=== PATIENT | male | born 1955 | race Caucasian/White ===

== ENCOUNTER 2019-02-09 08:40 | Inpatient (IN) | payer OTHER ==
[~2019-02-09] VITALS: Ht 188 cm; Wt 97.5 kg
[~2019-02-09 08:40] MED LIST: AZIT500 PO; LISI5 PO; Lisinopril2.5 MG; METF500 PO; METPRE4DP PO; Omeprazole20 M1; PROAIR RESPICL90 MCG INH; VITAMIN D31 ML PO
[2019-02-09 09:05] LABS: BASOPHILS ABSOLUTE AUTO 0.03 K/mm3 (0.00-0.23); BASOPHILS PERCENT AUTO 0 % (0-2); EOSINOPHILS ABSOLUTE AUTO 0.16 K/mm3 (0.00-0.68); EOSINOPHILS PERCENT AUTO 2 % (0-6); Hematocrit 45.2 % (37.0-53.0); Hemoglobin 14.4 g/dL (13.5-17.5); IMMATURE GRAN ABSOLUTE AUTO 0.03 K/mm3 (0.00-0.10); IMMATURE GRAN PERCENT AUTO 0 % (0-1); LYMPHOCYTES ABSOLUTE AUTO 2.94 K/mm3 (0.84-5.20); LYMPHOCYTES PERCENT AUTO 31 % (21-46); MONOCYTES ABSOLUTE AUTO 0.77 K/mm3 (0.16-1.47); MONOCYTES PERCENT AUTO 8 % (4-13); Mean Corpuscular HGB 29.9 pg (26.0-34.0); Mean Corpuscular HGB Conc 31.9 g/dL (31.5-36.5); Mean Corpuscular Volume 94 fL (80-100); Mean Platelet Volume 9.8 fL (9.1-12.4); NEUTROPHILS PERCENT AUTO 59 % (41-73); Platelet Count 287 K/mm3 (150-400); RDW Coefficient Variation 13.5 % (11.7-14.2); RDW Standard Deviation 46.4 fL (35.1-46.3); Red Blood Cell Count 4.82 M/mm3 (4.30-5.90); White Blood Cell Count 9.63 K/mm3 (4.00-11.30)
[2019-02-09 09:23] LABS: Alanine Aminotransfer (ALT/SGP 18 U/L (12-78); Albumin, Blood 3.4 g/dL (3.4-5.0); Albumin/Globulin Ratio 0.9 (0.8-1.8); Alk Phos 56 U/L (50-136); Anion Gap 5 mmol/L (6-16); Aspartate Aminotrans (AST/SGOT 26 U/L (12-37); Bilirubin, Total 0.2 mg/dL (0.1-1.0); Blood Urea Nitrogen 18 mg/dL (8-24); Bun/Creatinine Ratio 17.5 (12.0-20.0); CO2, Blood 25 mmol/L (21-32); Calcium, Blood 8.9 mg/dL (8.5-10.1); Chloride, Blood 108 mmol/L (98-108); Creatinine, Blood 1.03 mg/dL (0.60-1.20); Globulin, Blood 3.8 g/dL (2.2-4.0); Glomerular Filtration Rate >60 (60-); Glucose, Blood 172 mg/dL (70-99); Potassium, Blood 3.9 mmol/L (3.5-5.5); Sodium, Blood 138 mmol/L (136-145); Total Protein, Blood 7.2 g/dL (6.4-8.2)
[2019-02-09 11:00] LABS: International Normalized Ratio 1.01; Prothrombin Time Results 10.7 Sec (9.7-11.5)
--- NOTE | 2019-02-09 12:00 | NUR ---
PT ADMITTED TO ICU FROM ER FOR NSTEMI. PT ARRIVES ON GURNEY. ABLE TO STAND AND TRANSFER TO ICU BED W/O DIFFICULTY. PT DENIES CHEST PAIN, SOB, OR NAUSEA. C/O LEFT CHEST PRESSURE /10. STATES HE "CAN BARELY FEEL IT". PT DECRIBES PAIN THAT HAD BROUGHT HIM IN PRESSURE SO INTENSE THAT IT "WAS SQUEEZING HIS HEART". VSS. LUNGS WITH SOME SLIGHT SCATTERED COARSENESS; PT STATES HE IS A SMOKER. PT ARRIVES ON HEPARIN GTT AT 13UNITS. DR MCKEE HAD SEEN PT IN ER. SPOKE W DR MCKEE TO CLARIFY ORDERS; PT CAN EAT, HOLD PLAVIX LOADING DOSE; PT TO HAVE ANGIOGRAM ON MONDAY. PT UNSURE OF HOME MEDS; CALLED PER PT'S REQUEST TO ASK ABOUT MED LIST.
[2019-02-09] MEDS ORDERED: BASAGLAR K100 UNIT/1 SC (14:39)
[2019-02-09] MEDS ORDERED: ASPI81CH PO (14:39)
[2019-02-09] MEDS ORDERED: ATOR40TA PO (14:40)
--- NOTE | 2019-02-09 15:00 | NUR ---
SAFETY CONCERN PT STS HAS CONCERN FOR SAFTEY AT HOME REGARDING TWO SONS THAT ARE LIVING WITH HIM. STS ONE SON HAS MENTAL HEALTH ISSUES/DIAGNOSES AND THE OTHER HAS NO KNOWN DIAGNOSES BUT DOES HAVE BEHAVIORAL ISSUES. PT STS HE SOMETIMES FEELS THAT HE "NEEDS TO SLEEP WITH A GUN UNDER MY PILLOW."
--- NOTE | 2019-02-09 15:54 | NUR ---
CALL PLACED TO DR MCKEE REGARDING CRITICAL TROPONIN LEVEL. DR MCKEE ORDERED NEXT TROPONIN (SCHEDULED FOR 2099) TO BE CANCELED.
--- NOTE | 2019-02-09 17:53 | NUR ---
SHIFT SUMMARY PT REMAINS ALERT AND ORIENTED. PT STS CHEST PRESSURE REMAINS THE SAME AT A 1, BP STABLE WITH MAPS 70'S-80'S. MONITOR SHOWS NSR WITH BBB AND INVERTED T WAVE. 02 SATS REMAIN ABOVE 90% ON RA. PT DENIES SOB. RFA IV INFUSING HEPARIN GTT. IMPROVED PO INTAKE WITH MECHANICAL SOFT DIET.
--- NOTE | 2019-02-09 19:36 | NUR ---
ASSUMED CARE OF PT, HE IS RESTING QUIETLY RECLINING IN BED AND WATCHING TV AT THIS TIME, HE DENIES PAIN AND RATES HIS ONGOING CHEST PRESSURE BETTER AND PROVIDES 1/10 FOR SCALE. HE DENIES N/V, DENIES SOB/DYSPNEA, DENIES NUMBNESS/TINGLING. HE IS NOTED TO HAVE A COARSE COUGH DURING ASSESSMENT WHICH HE REPORTS HAS BEEN ONGOING FOR APPROXIMATELY 2 WEEKS, NO SPUTUM IS VISUALIZED AT THIS TIME. LUNGS ARE COARSE AND DIM BILAT BASES OTHERWISE CLEAR THROUGHOUT, SATS ARE MAINTAINING ON ROOM AIR, NO INCREASED WORK OF BREATHING IS NOTED AT THIS TIME. HRR, SINUS RHYTHM ON MONITOR WITH BBB, SKIN IS PWD, PULSES ARE FULL X 4 EXTREMITIES, CAP REFILL IS BRISK AND PRESSURES ARE MAINTAINING. ABD SOFT, NORMOACTIVE BOWEL TONES X4, DENIES TENDERNESS WITH PALPATION. 20 GAUGE IV TO RIGHT HAND, SITE WNL, DRESSING CDI, INFUSING HEPARIN GTT, RATE BOLUS OF 4500 UNITS ADMINISTERED AND RATE INCREASED TO 15 UNITS/KG/HR PER PHARMACY.
--- NOTE | 2019-02-10 01:15 | NUR ---
CHEST PAIN THIS RN TO BEDSIDE FOR TELEMETRY LEFT ARM ELECTRODE REPLACEMENT. ON ARRIVAL TO ROOM PT IS NOTED TO HAVE AUDIBLY LABORED BREATHING, PT ADMITS TO "MY CHEST IS KILLING ME" WHEN HE IS ASKED. STATES PAIN IS 7/10 AND SHARP TO RIGHT UPPER CHEST AND SHOULDER AND THROUGH TO HIS BACK, STATES THAT THE PAIN AWAKENED HIM. HE DENIES PAIN RELIEF WITH NTG THAT WAS ADMINISTERED IN ER "JUST MADE ME LIGHT HEADED" AND STATES THAT HE BELIEVES ASPIRIN PROVIDES IMPROVED PAIN RELIEF. HE DOES STATE THAT THE PAIN IS THE SAME THE PAIN THAT PROMPTED HIS ARRIVAL TO ER, HE DOES DESCRIBE AN ASPECT OF CHEST PRESSURE, HIS COLOR IS NOTED TO BE PALE AND SLIGHT DIAPHORESIS TO FOREHEAD IS VISIBLE. VS OBTAINED, EKG OBTAINED PER ORDERS, MORPHINE 2 MG IV ADMINISTERED, POST PAIN SCORE IS 3/10 AND CONTINUES IMPROVING AT THIS TIME PER PT. COLOR IMPROVES AND PT STATES THAT HE IS ABLE TO SLOW HIS BREATHING. WILL CONT TO MONITOR.
[2019-02-10 03:24] LABS: BASOPHILS ABSOLUTE AUTO 0.06 K/mm3 (0.00-0.23); BASOPHILS PERCENT AUTO 1 % (0-2); EOSINOPHILS ABSOLUTE AUTO 0.34 K/mm3 (0.00-0.68); EOSINOPHILS PERCENT AUTO 3 % (0-6); Hematocrit 43.3 % (37.0-53.0); Hemoglobin 14.1 g/dL (13.5-17.5); IMMATURE GRAN ABSOLUTE AUTO 0.02 K/mm3 (0.00-0.10); IMMATURE GRAN PERCENT AUTO 0 % (0-1); LYMPHOCYTES ABSOLUTE AUTO 3.63 K/mm3 (0.84-5.20); LYMPHOCYTES PERCENT AUTO 35 % (21-46); MONOCYTES ABSOLUTE AUTO 0.76 K/mm3 (0.16-1.47); MONOCYTES PERCENT AUTO 7 % (4-13); Mean Corpuscular HGB 30.1 pg (26.0-34.0); Mean Corpuscular HGB Conc 32.6 g/dL (31.5-36.5); Mean Corpuscular Volume 92 fL (80-100); Mean Platelet Volume 9.8 fL (9.1-12.4); NEUTROPHILS PERCENT AUTO 54 % (41-73); Platelet Count 273 K/mm3 (150-400); RDW Coefficient Variation 13.7 % (11.7-14.2); RDW Standard Deviation 46.3 fL (35.1-46.3); Red Blood Cell Count 4.69 M/mm3 (4.30-5.90); White Blood Cell Count 10.51 K/mm3 (4.00-11.30)
[2019-02-10 03:43] LABS: Alanine Aminotransfer (ALT/SGP 18 U/L (12-78); Albumin, Blood 3.3 g/dL (3.4-5.0); Albumin/Globulin Ratio 0.8 (0.8-1.8); Alk Phos 56 U/L (50-136); Anion Gap 5 mmol/L (6-16); Aspartate Aminotrans (AST/SGOT 18 U/L (12-37); Bilirubin, Total 0.3 mg/dL (0.1-1.0); Blood Urea Nitrogen 15 mg/dL (8-24); Bun/Creatinine Ratio 16.2 (12.0-20.0); CO2, Blood 28 mmol/L (21-32); Chloride, Blood 107 mmol/L (98-108); Creatinine, Blood 0.93 mg/dL (0.60-1.20); Globulin, Blood 3.9 g/dL (2.2-4.0); Glomerular Filtration Rate >60 (60-); Glucose, Blood 134 mg/dL (70-99); Potassium, Blood 4.3 mmol/L (3.5-5.5); Sodium, Blood 140 mmol/L (136-145); Total Protein, Blood 7.2 g/dL (6.4-8.2)
--- NOTE | 2019-02-10 06:15 | NUR ---
PT APPEARS TO BE SLEEPING AT THIS TIME, AWAKE UNTIL AFTER MIDNOC AND THEN AWAKENED BY CHEST PAIN AT 0115 THIS AM, MORPHINE 2 MG IV WAS ADMINISTERED WITH IMPROVEMENT TO 07/08. SATS CONTINUE MAINTAINING ON ROOM AIR, NO INCREASED WORK OF BREATHING THIS SHIFT OTHER THAN AT THE TIME OF 11/07 CHEST PAIN. SINUS RHYTHM WITH BBB CONTINUES, RATE 90-100S, SBP CONTINUES MID 90S-110S THIS SHIFT. STANDS AT BEDSIDE WITH STEADY GAIT FOR URINAL USE THIS SHIFT, DENIES DIZZINESS/VERTIGO WITH STANDING. HEPARIN GTT CONTINUES PER PHARMACY.
--- NOTE | 2019-02-10 12:16 | NUR ---
REASSESSMENT: PT HAS BEEN RESTING IN BED THROUGHOUT MOST OF THE MORNING. RATES CHEST PAIN 1-3/10. SBP IN THE 90S THIS MORNING SO METOPROLOL HELD. HEPARIN INFUSING AND ADJUSTED PER PHARMACY. PT GOT UP TO THE TOILET AND HAD A BM. VODING IN THE URINAL. CONTINUING TO MONITOR.
--- NOTE | 2019-02-10 16:32 | NUR ---
SHIFT SUMMARY PT HAS SPENT THE DAY RESTING IN BED. HE GETS UP TO THE EOB TO EAT AND TO VOID. PT STATES CHEST PAIN HAS BEEN MINIMAL THROUGHOUT THE DAY. HAS NOT REQUIRED ANY MEDICATION. SBP CONTINUES TO HANG AROUND 90. HR IN THE LOW 100S. LUNGS CLEAR, RA. EDUCATION GIVEN ON WHAT TO EXPECT WITH ANGIO TOMORROW. PT VERBALIZES UNDERSTANDING.
--- NOTE | 2019-02-10 19:45 | NUR ---
ASSUMED CARE OF PT, HE IS SITTING UP ON EDGE OF BED AT THIS TIME EATING SANDWICH. HE DENIES CP/PRESSURE, DENIES SOB/DYSPNEA, DENIES N/V, DENIES NUMBNESS/TINGLING. HE IS ALERT AND ORIENTED AND SPEAKING IN FULL SENTENCES, NO INCREASED WORK OF BREATHING IS NOTED, SATS ARE 95% ON ROOM AIR, LUNGS ARE CLEAR THROUGHOUT. HRR, SINUS WITH BBB ON MONITOR, RATE 80-90S, PRESSURES MAINTAINING, PULSES ARE FULL X 4 EXTREMITIES, CAP REFILL IS BRISK, SKIN IS PWD, NO EDEMA IS NOTED. ABD SOFT, NORMOACTIVE BOWEL TONES, NO TENDERNESS WITH LIGHT PALPATION. HEPARIN GTT CONTINUES INFUSING, RATE INCREASED TO 19 UNITS/KG AT THIS TIME PER PHARMACY. WILL CONT TO MONITOR
[2019-02-11 03:41] LABS: BASOPHILS ABSOLUTE AUTO 0.05 K/mm3 (0.00-0.23); BASOPHILS PERCENT AUTO 1 % (0-2); EOSINOPHILS ABSOLUTE AUTO 0.26 K/mm3 (0.00-0.68); EOSINOPHILS PERCENT AUTO 3 % (0-6); Hematocrit 43.6 % (37.0-53.0); IMMATURE GRAN ABSOLUTE AUTO 0.02 K/mm3 (0.00-0.10); IMMATURE GRAN PERCENT AUTO 0 % (0-1); LYMPHOCYTES ABSOLUTE AUTO 3.47 K/mm3 (0.84-5.20); LYMPHOCYTES PERCENT AUTO 35 % (21-46); MONOCYTES PERCENT AUTO 9 % (4-13); Mean Corpuscular HGB 29.7 pg (26.0-34.0); Mean Corpuscular HGB Conc 32.1 g/dL (31.5-36.5); Mean Corpuscular Volume 93 fL (80-100); Mean Platelet Volume 9.9 fL (9.1-12.4); NEUTROPHILS PERCENT AUTO 52 % (41-73); Platelet Count 272 K/mm3 (150-400); RDW Coefficient Variation 13.4 % (11.7-14.2); RDW Standard Deviation 45.4 fL (35.1-46.3); Red Blood Cell Count 4.71 M/mm3 (4.30-5.90)
[2019-02-11 03:58] LABS: Anion Gap 6 mmol/L (6-16); Blood Urea Nitrogen 15 mg/dL (8-24); Bun/Creatinine Ratio 15.8 (12.0-20.0); CO2, Blood 26 mmol/L (21-32); Calcium, Blood 8.9 mg/dL (8.5-10.1); Chloride, Blood 106 mmol/L (98-108); Creatinine, Blood 0.95 mg/dL (0.60-1.20); Glomerular Filtration Rate >60 (60-); Glucose, Blood 117 mg/dL (70-99); Potassium, Blood 4.1 mmol/L (3.5-5.5); Sodium, Blood 138 mmol/L (136-145)
--- NOTE | 2019-02-11 06:50 | NUR ---
PT FREQUENTLY AWAKE THIS SHIFT, CONTINUES TO DENY CHEST PAIN AND PRESSURE, DENIES SOB/DYSPNEA THROUGHOUT SHIFT, SINUS RHYTHM CONTINUES WITH BBB. PT DOES ADMIT TO HEADACHE THIS SHIFT HOWEVER ALSO EXPLAINS THAT HE HAS NOT HAD ANY COFFEE SINCE ADMIT, ULTRAM WAS ADMIN FOR HEADACHE OF 7/10, POST PAIN SCORE 3/10. PT HAS BEEN NPO SINCE [facility] FOR ANGIOGRAM THIS AM. OTHERWISE NO ACUTE CHANGES.
--- NOTE | 2019-02-11 07:00 | NUR ---
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
--- NOTE | 2019-02-11 10:34 | NUR ---
ASSUMED CARE AT 1000 Bedside report received from Gricelda HUERTA. Pt now ICU status. Formerly PCU status. Pt arrived from phlebotomist medical lab assistant with right transradial artery site dressed with TR band. Right groin accessed with arterial sheath. Safeset in place. Pt on room air. Sinus rhythm per monitor. Pt educated on activity limitations. Pt verbalizes understanding. Dr Rodtrate at bedside 1030. Update provided. No new orders at this time.
--- NOTE | 2019-02-11 12:16 | NUR ---
CALL PLACED TO DR HURTADO Specific orders for PTT monitoring and sheath removal obtained. Pt denies CP, shortness of breath, lightheadedness, dizziness. Main concern is back pain due to supine positioning in bed.
--- NOTE | 2019-02-11 12:17 | NUR ---
HYPOTENSION/BRADYCARDIA At 1130 pt became suddenly hypotensive. Variable HR, ranging from 40s to 70s. Pt became pale, dusky, doss. Able to answer questions, using one word. When asked if he was feeling lightheaded, pt stated "yes". Pt stated "I'm going out" before HR would decrease to 40s-50s. 500 mL fluid bolus started. EKG obtained. Dr Manriquez called by charge aide, Navid, to update on pt condition. No bleeding or hematoma noted to right radial site. No bleeding or hematoma noted to groin sheath. Site nontender on palpation. By 1135, BP stable, pt alert and states he is feeling better. Color improved. HR 70s-80s. Dr Morillo at bedside 1145. Update provided. EKGs reveiwed with provider. Discussed meds given including metoprolol and tramadol. New orders received. Pt repositioned for comfort, with respect to right groin and right radial restrictions.
[2019-02-11 12:21] LABS: BASOPHILS ABSOLUTE AUTO 0.04 K/mm3 (0.00-0.23); BASOPHILS PERCENT AUTO 0 % (0-2); EOSINOPHILS PERCENT AUTO 2 % (0-6); Hematocrit 42.7 % (37.0-53.0); Hemoglobin 13.9 g/dL (13.5-17.5); IMMATURE GRAN ABSOLUTE AUTO 0.02 K/mm3 (0.00-0.10); IMMATURE GRAN PERCENT AUTO 0 % (0-1); LYMPHOCYTES ABSOLUTE AUTO 2.63 K/mm3 (0.84-5.20); LYMPHOCYTES PERCENT AUTO 28 % (21-46); MONOCYTES ABSOLUTE AUTO 0.72 K/mm3 (0.16-1.47); MONOCYTES PERCENT AUTO 8 % (4-13); Mean Corpuscular HGB 30.2 pg (26.0-34.0); Mean Corpuscular HGB Conc 32.6 g/dL (31.5-36.5); Mean Corpuscular Volume 93 fL (80-100); Mean Platelet Volume 9.9 fL (9.1-12.4); NEUTROPHILS ABSOLUTE AUTO 5.68 K/mm3 (1.96-9.15); NEUTROPHILS PERCENT AUTO 61 % (41-73); Platelet Count 261 K/mm3 (150-400); RDW Coefficient Variation 13.7 % (11.7-14.2); RDW Standard Deviation 46.5 fL (35.1-46.3); Red Blood Cell Count 4.61 M/mm3 (4.30-5.90); White Blood Cell Count 9.29 K/mm3 (4.00-11.30)
--- NOTE | 2019-02-11 16:30 | NUR ---
UPDATE Arterial sheath removed at 1555. Manual pressure held. Hemostatis achieved after 20 minutes. Dressed with shanae patch and tegaderm. Pt reeducated on activity restrictions. Pt verbalizes understanding. Repositioned to comfort.
--- NOTE | 2019-02-11 17:30 | NUR ---
STATUS CHANGE TO PCU Discussed pt condition with Dr Manriquez. Provider states that pt is appropriate for PCU status. Pt has not had any additional episodes of hypotension or bradycardia.
--- NOTE | 2019-02-11 19:36 | NUR ---
ASSUMED CARE OF PT, RIGHT WRIST ACCESS SITE ASSESSED WITH OFFGOING RN, SITE REMAINS STABLE, NO REDNESS/SWELLING, OR DRAINAGE, NO BLEEDING AT THIS TIME. RIGHT GROIN ACCESS SITE REMAINS STABLE, NO BLEEDING OR HEMATOMA NOTED AT THIS TIME. PULSES FULL BILAT LOWER EXTREMITIES, PT DENIES NUMBNESS/TINGLING. LUNGS DIMIN BILAT BASES, CRACKLES RIGHT MID, SATS MAINTAINING ON ROOM AIR, NO INCREASED WORK OF BREATHING AT THIS TIME, INTERMITTENT COUGH CONTINUES, NO SPUTUM.
--- NOTE | 2019-02-11 19:48 | NUR ---
SUMMARY Pt remains A&O x 4. Pt on room air. Sinus rhythm with bundle branch block. BP stable. Pt has not had any additional episodes of bradycardia or hypotension. Atropine remains at bedside. Right radial site is dressed with tegaderm. Wrist immobilization board in place. Right femoral site is dressed with shanae patch and tegaderm. Color, sensation, capillary refill, distal pulses equal BUE and BLE. Pt's main concern this shift has been back pain which he attributes to immobility. Repositioned Q2H or more often, as pt requests. Bedside report given to oncoming RNRichelle.
[2019-02-12 05:00] LABS: BASOPHILS ABSOLUTE AUTO 0.03 K/mm3 (0.00-0.23); BASOPHILS PERCENT AUTO 0 % (0-2); EOSINOPHILS PERCENT AUTO 3 % (0-6); Hematocrit 44.5 % (37.0-53.0); Hemoglobin 14.3 g/dL (13.5-17.5); IMMATURE GRAN ABSOLUTE AUTO 0.03 K/mm3 (0.00-0.10); IMMATURE GRAN PERCENT AUTO 0 % (0-1); LYMPHOCYTES ABSOLUTE AUTO 2.29 K/mm3 (0.84-5.20); LYMPHOCYTES PERCENT AUTO 21 % (21-46); MONOCYTES ABSOLUTE AUTO 1.12 K/mm3 (0.16-1.47); MONOCYTES PERCENT AUTO 10 % (4-13); Mean Corpuscular HGB 29.6 pg (26.0-34.0); Mean Corpuscular HGB Conc 32.1 g/dL (31.5-36.5); Mean Corpuscular Volume 92 fL (80-100); NEUTROPHILS ABSOLUTE AUTO 7.35 K/mm3 (1.96-9.15); NEUTROPHILS PERCENT AUTO 66 % (41-73); Platelet Count 273 K/mm3 (150-400); RDW Coefficient Variation 13.8 % (11.7-14.2); RDW Standard Deviation 46.6 fL (35.1-46.3); Red Blood Cell Count 4.83 M/mm3 (4.30-5.90); White Blood Cell Count 11.12 K/mm3 (4.00-11.30)
[2019-02-12 06:21] LABS: Anion Gap 6 mmol/L (6-16); Blood Urea Nitrogen 12 mg/dL (8-24); Bun/Creatinine Ratio 13.6 (12.0-20.0); CO2, Blood 25 mmol/L (21-32); Calcium, Blood 8.8 mg/dL (8.5-10.1); Chloride, Blood 108 mmol/L (98-108); Creatinine, Blood 0.88 mg/dL (0.60-1.20); Glomerular Filtration Rate >60 (60-); Glucose, Blood 130 mg/dL (70-99); Potassium, Blood 4.1 mmol/L (3.5-5.5); Sodium, Blood 139 mmol/L (136-145)
--- NOTE | 2019-02-12 06:50 | NUR ---
PT RESTS QUIETLY THROUGHOUT SHIFT, COMPLIANT WITH MOVEMENT RESTRICTIONS TO RIGHT WRIST, BOTH RIGHT GROIN AND RIGHT WRIST ACCESS SITES REMAIN STABLE THROUGHOUT THIS SHIFT. UP TO CHAIR AT BEDSIDE WITH 1 PERSON STANDBY ASSIST FOR LINE MANAGEMENT AND TOLERATED WELL, GAIT STEADY. HE DOES STATE THIS AM THAT HE IS HOPEFUL FOR DISCHARGE TO HOME.
[2019-02-12] MEDS ORDERED: ALBU90OI INH (08:01)
[2019-02-12] MEDS ORDERED: FURO40 PO (08:02)
[2019-02-12] MEDS ORDERED: LEVO750 PO (08:03)
[2019-02-12] MEDS ORDERED: METO25ER PO (08:04)
[2019-02-12] MEDS ORDERED: NITR.4SL SL (08:07)
[2019-02-12] MEDS ORDERED: ONDA4ODT SL (08:10)
[2019-02-12] MEDS ORDERED: TICA90TA PO (08:11)
--- NOTE | 2019-02-12 09:17 | NUR ---
RAJENDRA: DR HURTADO CAME IN TO SEE PT. ORDER FOR LIFE VEST GIVEN VERBALY, PAPERS GATHERED AND GIVEN TO DR HURTADO TO SIGN. CONTACTED JIAN FROM [facility] AND RECEIVED DETAILED INSTRUCTIONS OF WHAT IS NEEDED IN ORDER TO ATEMPT TO GET ORDERED AND COMPLETE TODAY. FAXED OFF FACE SHEET, H&P, CATH PROCEDURE NOTES, ECHO REPORT AND ORDER AT THIS TIME. WILL CONTINUE TO MONITOR AND ASSESS FURTHER.
--- NOTE | 2019-02-12 09:38 | NUR ---
BRALINTA VS PLAVIX: CALLED PT PREFERED [facility]ARM[facility]Y [facility] IN [place] TO SEE IF BRALINTA WILL BE AFORDABLE FOR PT. RECEIVED INFORMATION ON BRALINTA NEEDING TO BE PREAUTHORIZED PRIOR TO PT GETTING IT WELL THE MEDICATION NOT HAVING A GENERIC FORM SO WILL BE RATHER EXPENSIVE. PHARMACY STATES PLAVIX WOULD BE MUCH CHEEPER. DR SERRATO CALLED AND UPDATED NEW ORDERS PLACED FOR PLAVIX WITH A LOADING DOSE.
--- NOTE | 2019-02-12 11:02 | NUR ---
VINCE FROM [facility]: ARIVED TO DISCUSS THE PROCESS AND NEED FOR NEW INFORMATION. PROVIDED WITH PEDIATRIC SURGEON PROGRESS NOTE.
[2019-02-12] MEDS ORDERED: POTCHL20ER PO ×2 (11:28→11:29)
[2019-02-12] MEDS ORDERED: CLOP75 PO (11:29)
--- NOTE | 2019-02-12 11:41 | NUR ---
DISCHARGE MEDICATIONS: DISCHARGE MEDICATIONS WERE CHANGED PER DR PORRAS AND DR HURTADO. BRALINTA WAS DISCONTINUED, LISINOPRIL AND METOPROLO WERE INCREASED. MEDICATIONS CALLED INTO [facility] AT THIS TIME.
--- NOTE | 2019-02-12 12:10 | NUR ---
[facility] REP: JIAN FROM [facility] CAME IN AND GAVE THE PT SOME EDUCATION. AWAITING ON INSURANCE APPROVAL.
--- NOTE | 2019-02-12 16:51 | NUR ---
LIFE DAVID: CALLED [facility] TO TOUCH BASIS ON WHERE WE ARE AT IN THE PROCESS. [facility] STATES RECEIVING THE ORDER AT APPROX 1626. SHE IS FINISHING A FEW THINGS THEN WILL BE OVER TO PLACE AND EDUCATE ON FADIAT.
--- NOTE | 2019-02-12 17:07 | NUR ---
APPLICATION: PT IS RECEIVING EDUCATION AND BEING FITTED FOR THE LIFE VEST AT THIS TIME.
--- NOTE | 2019-02-12 18:10 | NUR ---
DISCHARGE: DISCHARGE INSTRUCTIONS GIVEN TO PT. REVIEWED MEDICATIONS, WHAT THEY ARE FOR AND SIDE EFFECTS. PT DRESSED. AWAITING ON TO ARIVE. WILL DC IV ONCE IS HERE AND PT IS READY TO LEAVE.
--- NOTE | 2019-02-12 18:28 | NUR ---
PT WALKED OUT THE DOOR AT THIS TIME, WITH AND GRANDSON AT SIDE.
== END 2019-02-12 18:28 | disposition home or self-care (01) | DRG 247 ==
LOC: ER 08:40 → ICUE 10:24 → ICUW 10:24 → ICUE 11:27
PROVIDERS: Emergency Medicine; Internal Medicine Cardiovascular Disease; Nurse Practitioner Acute Care; ADMIT Family Medicine
PROC: B2111ZZ Fluoroscopy of Multiple Coronary Arteries using Low Osmolar Contrast (ICD-10-PCS; principal; 2019-02-11)
PROC: 027034Z Dilation of Coronary Artery, One Artery with Drug-eluting Intraluminal Device, Percutaneous Approach (ICD-10-PCS; 2019-02-11)
PROC: 4A023N7 Measurement of Cardiac Sampling and Pressure, Left Heart, Percutaneous Approach (ICD-10-PCS; 2019-02-11)
PROC: 4A033BC Measurement of Arterial Pressure, Coronary, Percutaneous Approach (ICD-10-PCS; 2019-02-11)
DX: I21.4 Non-ST elevation (NSTEMI) myocardial infarction (principal); I47.2 Ventricular tachycardia; I50.40 Unspecified combined systolic (congestive) and diastolic (congestive) heart failure; Z79.84 Long term (current) use of oral hypoglycemic drugs; F17.210 Nicotine dependence, cigarettes, uncomplicated; K21.9 Gastro-esophageal reflux disease without esophagitis; E11.9 Type 2 diabetes mellitus without complications; I44.7 Left bundle-branch block, unspecified; I25.5 Ischemic cardiomyopathy; J44.9 Chronic obstructive pulmonary disease, unspecified; I11.0 Hypertensive heart disease with heart failure
CPT/HCPCS: 36415; 71046; 80048; 80053; 82947; 83735; 84145; 84484; 85025; 85347; 85610; 85730; 92978; 93005; 93010; 93458; 93571; 94640; 96360; 99152; 99153; 99285-25; C1725; C1753; C1769; C1874; C1887; C1894; C8929; C9600; J0461; J1644; J1940; J2250; J2270; J2405; J3010; J7030; J7040; Q9957; Q9967

== ENCOUNTER 2020-11-16 13:11 | Emergency (ER) | payer OTHER ==
[~2020-11-16] VITALS: Ht 188 cm; Wt 97.5 kg
[~2020-11-16 13:11] MED LIST changes: +ALBU90OI INH; +ASPI81CH PO; +ATOR40TA PO; +BASAGLAR K100 UNIT/1 SC; +CLOP75 PO; +FURO40 PO; +LEVO750 PO; +METO25ER PO; +NITR.4SL SL; +ONDA4ODT SL; +POTCHL20ER PO; +TICA90TA PO
[2020-11-16 13:49] LABS: BASOPHILS ABSOLUTE AUTO 0.02 K/mm3 (0.00-0.23); BASOPHILS PERCENT AUTO 0 % (0-2); EOSINOPHILS ABSOLUTE AUTO 0.05 K/mm3 (0.00-0.68); EOSINOPHILS PERCENT AUTO 1 % (0-6); Hemoglobin 15.9 g/dL (13.5-17.5); IMMATURE GRAN ABSOLUTE AUTO 0.01 K/mm3 (0.00-0.10); IMMATURE GRAN PERCENT AUTO 0 % (0-1); LYMPHOCYTES ABSOLUTE AUTO 1.58 K/mm3 (0.84-5.20); LYMPHOCYTES PERCENT AUTO 28 % (21-46); MONOCYTES ABSOLUTE AUTO 0.79 K/mm3 (0.16-1.47); MONOCYTES PERCENT AUTO 14 % (4-13); Mean Corpuscular HGB 30.9 pg (26.0-34.0); Mean Corpuscular HGB Conc 34.6 g/dL (31.5-36.5); Mean Corpuscular Volume 90 fL (80-100); Mean Platelet Volume 10.4 fL (9.1-12.4); NEUTROPHILS ABSOLUTE AUTO 3.22 K/mm3 (1.96-9.15); NEUTROPHILS PERCENT AUTO 57 % (41-73); Platelet Count 237 K/mm3 (150-400); RDW Coefficient Variation 11.9 % (11.7-14.2); Red Blood Cell Count 5.14 M/mm3 (4.30-5.90); White Blood Cell Count 5.67 K/mm3 (4.00-11.30)
[2020-11-16 14:11] LABS: Alanine Aminotransfer (ALT/SGP 32 U/L (12-78); Albumin, Blood 3.2 g/dL (3.4-5.0); Albumin/Globulin Ratio 0.7 (0.8-1.8); Alk Phos 88 U/L (50-136); Anion Gap 9 mmol/L (6-16); Aspartate Aminotrans (AST/SGOT 25 U/L (12-37); Bilirubin, Total 0.5 mg/dL (0.1-1.0); Blood Urea Nitrogen 13 mg/dL (8-24); CO2, Blood 24 mmol/L (21-32); Calcium, Blood 8.8 mg/dL (8.5-10.1); Chloride, Blood 97 mmol/L (98-108); Creatinine, Blood 0.72 mg/dL (0.60-1.20); Globulin, Blood 4.5 g/dL (2.2-4.0); Glomerular Filtration Rate >60 (60-); Glucose, Blood 397 mg/dL (70-99); Potassium, Blood 4.3 mmol/L (3.5-5.5); Sodium, Blood 130 mmol/L (136-145); Total Protein, Blood 7.7 g/dL (6.4-8.2); Troponin I <0.015 ng/mL (0.000-0.040)
[2020-11-16] MEDS ORDERED: IBUP800 PO (16:48)
[2020-11-16] MEDS ORDERED: Norco 5-325 Ta1 EACH PO (16:48)
== END 2020-11-16 18:15 | disposition home or self-care (01) ==
LOC: ER 13:11
PROVIDERS: Physician Assistant
DX: U07.1 COVID-19 (principal); E11.9 Type 2 diabetes mellitus without complications; F17.210 Nicotine dependence, cigarettes, uncomplicated; Z79.4 Long term (current) use of insulin; Z88.6 Allergy status to analgesic agent; Z79.02 Long term (current) use of antithrombotics/antiplatelets; Z79.899 Other long term (current) drug therapy
CPT/HCPCS: 36415; 71045; 71260; 80053; 84484; 85025; 93005; 93010; 96374; 99285-25; A9270; J1885; J7030; Q9967

== ENCOUNTER 2024-07-04 15:58 | Inpatient (IN) | payer MEDICARE, OTHER ==
[~2024-07-04] VITALS: Ht 177.8 cm; Wt 68.4 kg
[~2024-07-04 15:58] MED LIST changes: +IBUP800 PO; +Norco 5-325 Ta1 EACH PO
[2024-07-04] MEDS ORDERED: Lactated Ringer's 1,000 ML IV ONE ×2 (16:55→18:20)
[2024-07-04 16:59] LABS: BASOPHILS ABSOLUTE AUTO 0.03 K/mm3 (0.00-0.23); BASOPHILS PERCENT AUTO 0 % (0-2); EOSINOPHILS PERCENT AUTO 0 % (0-6); Hematocrit 49.7 % (37.0-53.0); Hemoglobin 17.3 g/dL (13.5-17.5); IMMATURE GRAN ABSOLUTE AUTO 0.02 K/mm3 (0.00-0.10); IMMATURE GRAN PERCENT AUTO 0 % (0-1); LYMPHOCYTES ABSOLUTE AUTO 1.04 K/mm3 (0.84-5.20); LYMPHOCYTES PERCENT AUTO 13 % (21-46); MONOCYTES ABSOLUTE AUTO 0.68 K/mm3 (0.16-1.47); MONOCYTES PERCENT AUTO 8 % (4-13); Mean Corpuscular HGB 31.7 pg (26.0-34.0); Mean Corpuscular HGB Conc 34.8 g/dL (31.5-36.5); Mean Corpuscular Volume 91 fL (80-100); Mean Platelet Volume 11.6 fL (9.1-12.4); NEUTROPHILS ABSOLUTE AUTO 6.55 K/mm3 (1.96-9.15); NEUTROPHILS PERCENT AUTO 79 % (41-73); Platelet Count 226 K/mm3 (150-400); RDW Coefficient Variation 12.1 % (11.7-14.2); RDW Standard Deviation 40.2 fL (35.1-46.3); Red Blood Cell Count 5.46 M/mm3 (4.30-5.90); White Blood Cell Count 8.32 K/mm3 (4.00-11.30)
[2024-07-04 17:13] LABS: Magnesium, Blood 2.3 mg/dL (1.6-2.4)
[2024-07-04 17:25] LABS: Base Excess Venous 6.6 mmol/L; Bicarbonate Venous 27.5 mmol/L (24.0-30.0); PCO2 Venous 58.7 mmHg (38-42); pH Blood Venous 7.35 (7.34-7.37)
[2024-07-04 17:41] LABS: Source, Urine Clean Catch
[2024-07-04 17:42] LABS: Albumin, Blood 3.6 g/dL (3.4-5.0); Beta-hydroxybutyrate 16.7 mg/dL (0.2-2.8); Bilirubin, Total 0.6 mg/dL (0.1-1.0); Bun/Creatinine Ratio 15.8 (12.0-20.0); Calcium, Blood 9.2 mg/dL (8.5-10.1); Creatinine, Blood 0.89 mg/dL (0.60-1.20); Globulin, Blood 3.6 g/dL (2.2-4.0); Potassium, Blood 3.4 mmol/L (3.5-5.5); Total Protein, Blood 7.2 g/dL (6.4-8.2)
[2024-07-04 17:53] LABS: Appearance, Urine Clear (Clear); Bilirubin, Urine Neg (Neg); Blood, Urine Neg (Neg); Glucose Qualitative, Urine 4+ (Neg); Ketones, Urine 1+ (Neg); Leukocyte Esterase, Urine Neg (Neg); Nitrite, Urine Neg (Neg); Protein, Urine Neg (Neg); Urobilinogen, Urine NORM (Normal)
[2024-07-04 17:58] LABS: Color, Urine Pale Yellow (P-Yellow)
[2024-07-04 18:31] LABS: CORONAVIRUS COVID-19 AG Negative (NEGATIVE); INFLUENZA A AG Negative (NEGATIVE); INFLUENZA B AG Negative (NEGATIVE)
[2024-07-04] MEDS ORDERED: Insulin Regular 100 Unit/ML 1ML Dose SC ONE (19:55)
[2024-07-04 21:25] LABS: U Amphetamine Screen DETECTED; U Barbituate Screen Not Detected; U Benzodiazapine Screen Not Detected; U Cannabinoids Screen DETECTED; U Cocaine Screen Not Detected; U Methamphetamine Screen DETECTED
[2024-07-04 21:26] LABS: U Buprenorphine Screen Not Detected; U Methadone Screen Not Detected; U Opiates Screen Not Detected; U Oxycodone Screen Not Detected; U Phencyclidine Screen Not Detected
[2024-07-04] MEDS ORDERED: NS 1,000 ML IV SCH (22:35)
[2024-07-04] MEDS ORDERED: FLU VACC TS2024-25(6MOS UP)/PF 45 MCG/0.5 ML SYRINGE IM ONE (22:35)
[2024-07-04] MEDS ORDERED: Insulin Glargine-Yfgn 100 Unit/mL 3 ML SYR SC SCH (23:00)
[2024-07-04] MEDS ORDERED: Enoxaparin 40 MG/0.4 ML SYR SC SCH (23:00)
[2024-07-04] MEDS ORDERED: Potassium Chloride 40 MEQ in NS 250 ML IV ONE (23:45)
[2024-07-05 00:05] VITALS: BP 132/64
--- NOTE | 2024-07-05 00:57 | NUR ---
ASSUMPTION OF CARE @ APPROX 2356 REPORT RECEIVED BY THIS RN BY FISH HOUSE WORKER, VANESSA @ APPROX 2342 PT ARRIVED TO PCU 20 @ APPROX 2356, PT WAS SLID OVER FROM ER TRANSPORT BED TO PCU BED BY MEDICAL STAFF.
[2024-07-05 03:25] VITALS: BP 118/77
[2024-07-05 03:55] LABS: BASOPHILS ABSOLUTE AUTO 0.08 K/mm3 (0.00-0.23); BASOPHILS PERCENT AUTO 1 % (0-2); EOSINOPHILS ABSOLUTE AUTO 0.03 K/mm3 (0.00-0.68); EOSINOPHILS PERCENT AUTO 0 % (0-6); Hematocrit 47.7 % (37.0-53.0); Hemoglobin 16.4 g/dL (13.5-17.5); IMMATURE GRAN ABSOLUTE AUTO 0.05 K/mm3 (0.00-0.10); IMMATURE GRAN PERCENT AUTO 0 % (0-1); LYMPHOCYTES ABSOLUTE AUTO 2.48 K/mm3 (0.84-5.20); LYMPHOCYTES PERCENT AUTO 19 % (21-46); MONOCYTES ABSOLUTE AUTO 1.36 K/mm3 (0.16-1.47); MONOCYTES PERCENT AUTO 10 % (4-13); Mean Corpuscular HGB 31.2 pg (26.0-34.0); Mean Corpuscular HGB Conc 34.4 g/dL (31.5-36.5); Mean Corpuscular Volume 91 fL (80-100); Mean Platelet Volume 11.3 fL (9.1-12.4); NEUTROPHILS ABSOLUTE AUTO 9.12 K/mm3 (1.96-9.15); NEUTROPHILS PERCENT AUTO 70 % (41-73); Platelet Count 208 K/mm3 (150-400); RDW Coefficient Variation 12.3 % (11.7-14.2); RDW Standard Deviation 40.4 fL (35.1-46.3); Red Blood Cell Count 5.26 M/mm3 (4.30-5.90); White Blood Cell Count 13.12 K/mm3 (4.00-11.30)
[2024-07-05 04:21] LABS: Albumin, Blood 3.4 g/dL (3.4-5.0); Albumin/Globulin Ratio 1.2 (0.8-1.8); Bilirubin, Total 0.4 mg/dL (0.1-1.0); Bun/Creatinine Ratio 20.4 (12.0-20.0); Calcium, Blood 9.1 mg/dL (8.5-10.1); Creatinine, Blood 0.74 mg/dL (0.60-1.20); Globulin, Blood 2.9 g/dL (2.2-4.0); Potassium, Blood 3.4 mmol/L (3.5-5.5); Total Protein, Blood 6.3 g/dL (6.4-8.2)
[2024-07-05] MEDS ORDERED: Potassium Chloride 20 MEQ in NS 90 ML IV ONE (05:32)
--- NOTE | 2024-07-05 05:52 | NUR ---
SHIFT SUMMARY PT IS SOMMULENT/EASILY AWAKENS TO VERBAL STIMULI, ORIENTED TO NAME AND , ABLE TO STATE HE IS IN THE HOSPITAL, WHEN ASKED PT WHAT TOWN HE IS IN HE ANSWERED A BIG ONE, WHEN THIS RN ASKED PT WHAT THE NAME OF THE TOWN WAS HE DID NOT RESPOND, PT DID NOT RESPOND WHEN ASKED WHAT YEAR IT IS, MOVING ALL EXTREMITIES EQUALLY, OBEYS COMMANDS, SLOW RESPONSE AND MUMBLED SPEECH. SPO2 GREATER THAN 90% ON RA, NO SIGNS OF RESPIRATORY DISTRESS OBSERVED BY THIS RN. CONTINUOUS TELE MONITORING, PT HAS PACER TO THE LEFT SIDE UNDER THE COLLAR BONE BUT DENIES HAVING CARDIAC HX, PT DENES CHEST P/P, BP STABLE WITH MAP GREATER THAN 65, PULSES PRESENT T/O. BOWEL TONES PRESENT T/O ALL 4Q, PT DENEIS PAIN DURING PALPATION. NEGRON IS SECURE/PATENT/DRAINING TO GRAVITY, URINE YELLOW IN COLOR. PT HAS CONTINUOUS GLUCOSE MONITOR TO RIGHT UPPER ARM. BED LOWEST POSITION, CALL LIGHT IN REACH, AWAITING TO GIVE REPORT TO ONCOMING RN.
[2024-07-05] MEDS ORDERED: Insulin Human Lispro 100 Units/ML 3ML Syringe SC SCH (07:30)
[2024-07-05] MEDS ORDERED: Potassium Chloride 20 MEQ TabCR PO ONE (07:55)
[2024-07-05] MEDS ORDERED: Sodium Chloride 0.45% 1,000 ML IV SCH ×2 (08:00→11:00)
[2024-07-05 08:39] VITALS: BP 129/83
[2024-07-05] MEDS ORDERED: Magnesium Hydroxide Conc 10 ML UDC PO ONE (11:00)
[2024-07-05] MEDS ORDERED: Tamsulosin HCl 0.4 MG Cap PO SCH (11:00)
[2024-07-05] MEDS ORDERED: Docusate Sodium 100 MG Cap PO SCH (11:00)
--- NOTE | 2024-07-05 11:46 | NUR ---
TRANSFER NOTE: PATIENT ARRIVED TO THE UNIT VIA BED AT 1135; PATIENT SOMNULENT; GREETED PATIENT AND HE PARTIAL OPENED HIS EYES BUT DID NOT INTERACT. PATIENT SETTLED IN THE ROOM, CALL LIGHT PROVIDED, BED ALARM SET, NO SIGNS OR SYMPTOMS OF DISTRESS, PLAN OF CARE ONGOING.
[2024-07-05 15:09] VITALS: BP 104/67
--- NOTE | 2024-07-05 18:11 | NUR ---
SHIFT SUMMARY: PATIENT IS CURRENTLY UP OUT OF BED IN THE BEDSIDE RECLINER, WAS A SBA ASSIST, PATIENT JOKING AND INTERACTING WITH STAFF; SOMEWHAT CONFUSED AND THOUGHT HIS WAS OUT IN THE HALLWAY AND MADE A COMMENT ABOUT THE DOOR AND TAKING TO THE DOOR. PATIENT FOLLOWING COMMANDS AND NOT DISPLAYING ANY SIGNS OR SYMPTOMS OF DISTRESS. CALL LIGHT WITHIN REACH,PLAN OF CARE ONGOING.
[2024-07-05 20:50] VITALS: BP 111/65
--- NOTE | 2024-07-05 22:20 | NUR ---
HS CBG 368. PT ASYMPTOMATIC. HOSPITALIST NOTIFIED PT ONLY HAS AC COVERAGE. NON SCHEDULED 4 UNITS HUMALOG PER LOW SS ORDERED. PT LA 2.7 THEN INCREASED TO 3.1 YESTERDAY WITH NO REDRAW, HOSPITALIST NOTIFIED AND NO REDRAW ORDERED.
[2024-07-06 05:39] VITALS: BP 106/71
--- NOTE | 2024-07-06 05:49 | NUR ---
SHIFT SUMMARY NOC PT A/O X 2-3. IMPULSIVE AND FORGETFUL AT TIMES, BUT EASY TO REDIRECT. PT HAS NEGRON IN PLACE FOR RETENTION WITH GOOD OUTPUT AND CLEAR YELLOW URINE. PT HAS 1/2 NS INFUSING @ 125 ML/HR. VSS. HS CBG 368 WITH 4 UNITS GIVEN NON SCHEDULED PER SLIDING SCALE. PT SLEPT FOR MAJORITY OF SHIFT. PT CURRENTLY RESTING WITH BED ALARM ON, BED IN LOWEST POSITION, AND CALL LIGHT WITHIN REACH.
[2024-07-06 07:28] VITALS: BP 111/72
[2024-07-06 10:06] LABS: Bun/Creatinine Ratio 19.7 (12.0-20.0); Calcium, Blood 8.2 mg/dL (8.5-10.1); Creatinine, Blood 0.81 mg/dL (0.60-1.20); Potassium, Blood 3.8 mmol/L (3.5-5.5)
[2024-07-06] MEDS ORDERED: GABA100 PO (11:35)
--- NOTE | 2024-07-06 11:51 | NUR ---
CALLED AND SPOKE WITH THE PATIENT'S CHRIS; SHE WAS UNABLE TO CONFIRM PATIENT'S MEDICATION; VERFIED [facility]; CALLED THEM THEY STATED THAT THE PATIENT HAS FILLED MEDICATIONS SINCE JANUARY AND THAT THEY TRANSFERS MEDS TO A [facility] IN AUGUST; CALLED [facility] AND THEY STATED THAT THE PATIENT HASN'T FILLED MEDS SINCE MARCH. CONFIRMED MEDICATIONS THAT JAIME HAD ON FILE AND UPDATED MEDICATION LIST AND NOTIFIED DR. COE. ALSO NOTIFIED DR. COE THAT PATIENT'S BLOOD SUGAR WAS 382; PER DR. COE TO CORRECT PATIENT'S BLOOD SUGAR WITH A HIGH CORRECTION SCALE.
[2024-07-06] MEDS ORDERED: Insulin Human Lispro 100 Units/ML 3ML Syringe SC SCH ×2 (12:25→16:30)
[2024-07-06] MEDS ORDERED: HUMULIN R100 UNIT/2 SC (13:27)
[2024-07-06] MEDS ORDERED: PANT20 PO (13:37)
[2024-07-06] MEDS ORDERED: TAMS.4ER PO (13:38)
--- NOTE | 2024-07-06 14:07 | NUR ---
DISCHARGE NOTE: WENT OVER DISCHARGE WITH THE PATIENT, REMOVED IV'S, PATIENT FINISHING LUNCH THEN WILL GET HIMSELF DRESSED. PATIENT IS WAITING FOR HIS RIDE WHICH WAS TOLD WOULD BE HERE AROUND 1400.
--- NOTE | 2024-07-06 15:52 | NUR ---
SOMEONE ARRIVED TO TAKE PATIENT HOME THIS WAS AROUND 1500. PATIENT WAS WHEELED DOWN IN A WHEELCHAIR BY THE PERSON WHO CAME AND PICKED HIM UP. NO SIGNS OR SYMPTOMS OF DISTRESS WITH DISCHARGE.
== END 2024-07-06 15:14 | disposition home or self-care (01) | DRG 917 ==
LOC: ER 15:58 → PCU 15:59 → MEDS 07-05 11:29
PROVIDERS: Internal Medicine; Nurse Practitioner Acute Care; Student in an Organized Health Care Education/Training Program; ADMIT Internal Medicine
PROC: 0T9B70Z Drainage of Bladder with Drainage Device, Via Natural or Artificial Opening (ICD-10-PCS; principal; 2024-07-04)
DX: T43.651A Poisoning by methamphetamines accidental (unintentional), initial encounter (principal); G92.8 Other toxic encephalopathy; E87.1 Hypo-osmolality and hyponatremia; N13.30 Unspecified hydronephrosis; N17.9 Acute kidney failure, unspecified; E86.0 Dehydration; E11.65 Type 2 diabetes mellitus with hyperglycemia; F17.210 Nicotine dependence, cigarettes, uncomplicated; R33.8 Other retention of urine; K21.9 Gastro-esophageal reflux disease without esophagitis; E78.5 Hyperlipidemia, unspecified; N40.1 Benign prostatic hyperplasia with lower urinary tract symptoms; K59.00 Constipation, unspecified; E87.6 Hypokalemia; I10 Essential (primary) hypertension; F12.10 Cannabis abuse, uncomplicated; I25.10 Atherosclerotic heart disease of native coronary artery without angina pectoris; Z79.899 Other long term (current) drug therapy; Z79.82 Long term (current) use of aspirin; Z79.811 Long term (current) use of aromatase inhibitors; Z79.4 Long term (current) use of insulin; Z79.51 Long term (current) use of inhaled steroids; Z79.1 Long term (current) use of non-steroidal anti-inflammatories (NSAID); Z79.891 Long term (current) use of opiate analgesic; Z79.84 Long term (current) use of oral hypoglycemic drugs; Z90.49 Acquired absence of other specified parts of digestive tract; Z95.0 Presence of cardiac pacemaker; Z87.19 Personal history of other diseases of the digestive system; X58.XXXA Exposure to other specified factors, initial encounter
CPT/HCPCS: 36415; 51702; 70450; 71045; 74177; 80048; 80053; 81003; 82010; 82803; 82947; 83036; 83605; 83690; 83735; 83880; 83930; 84295; 85025; 87428-QW; 93005; 93010; 96360-59; 96361; 96372; 96374; 96376; 99285-25; A9270; G0378; J1650; J1815; J3480; J7030; J7050; J7120; Q9967

== ENCOUNTER 2024-09-10 11:18 | Inpatient (IN) | payer MEDICARE ==
[~2024-09-10] VITALS: Ht 188 cm; Wt 63.8 kg
[~2024-09-10 11:18] MED LIST changes: +GABA100 PO; +HUMULIN R100 UNIT/2 SC; +PANT20 PO; +TAMS.4ER PO
[2024-09-10] MEDS ORDERED: NS 1,000 ML IV SCH ×2 (11:30→13:20)
[2024-09-10 11:32] LABS: Calcium, Ionized (POC) 1.22 mmol/L (1.10-1.46); Chloride (POC) 109 mmol/L (98-108); Creatinine (POC) 1.1 mg/dL (0.8-1.3); Glucose (ISTAT POC) 638 mg/dL (70-99); Hemoglobin (POC) 18.7 g/dL (13.5-17.5); Potassium (POC) 4.7 mmol/L (3.5-5.5); Sodium (POC) 149 mmol/L (135-148); Total CO2 (POC) 27 mmol/L (21-32)
[2024-09-10 12:01] LABS: BASOPHILS ABSOLUTE AUTO 0.05 K/mm3 (0.00-0.23); BASOPHILS PERCENT AUTO 1 % (0-2); EOSINOPHILS ABSOLUTE AUTO 0.01 K/mm3 (0.00-0.68); EOSINOPHILS PERCENT AUTO 0 % (0-6); Hematocrit 53.6 % (37.0-53.0); IMMATURE GRAN ABSOLUTE AUTO 0.04 K/mm3 (0.00-0.10); IMMATURE GRAN PERCENT AUTO 0 % (0-1); LYMPHOCYTES ABSOLUTE AUTO 2.02 K/mm3 (0.84-5.20); LYMPHOCYTES PERCENT AUTO 19 % (21-46); MONOCYTES ABSOLUTE AUTO 0.64 K/mm3 (0.16-1.47); MONOCYTES PERCENT AUTO 6 % (4-13); Mean Corpuscular HGB Conc 33.6 g/dL (31.5-36.5); Mean Corpuscular Volume 98 fL (80-100); Mean Platelet Volume 12.3 fL (9.1-12.4); NEUTROPHILS ABSOLUTE AUTO 7.75 K/mm3 (1.96-9.15); NEUTROPHILS PERCENT AUTO 74 % (41-73); Platelet Count 225 K/mm3 (150-400); RDW Coefficient Variation 12.7 % (11.7-14.2); RDW Standard Deviation 45.8 fL (35.1-46.3); Red Blood Cell Count 5.46 M/mm3 (4.30-5.90); White Blood Cell Count 10.51 K/mm3 (4.00-11.30)
[2024-09-10 12:31] LABS: Albumin, Blood 4.1 g/dL (3.4-5.0); Albumin/Globulin Ratio 1.1 (0.8-1.8); Bilirubin, Total 0.8 mg/dL (0.1-1.0); Bun/Creatinine Ratio 33.3 (12.0-20.0); Calcium, Blood 10.5 mg/dL (8.5-10.1); Creatinine, Blood 0.9 mg/dL (0.60-1.20); Globulin, Blood 3.8 g/dL (2.2-4.0); Potassium, Blood 4.6 mmol/L (3.5-5.5); Total Protein, Blood 7.9 g/dL (6.4-8.2)
[2024-09-10] MEDS ORDERED: Insulin Regular 100 Unit/ML 1ML Dose IV ONE (13:40)
[2024-09-10 14:08] LABS: U Amphetamine Screen DETECTED; U Barbituate Screen Not Detected; U Benzodiazapine Screen Not Detected; U Buprenorphine Screen Not Detected; U Cannabinoids Screen Not Detected; U Cocaine Screen Not Detected; U Methadone Screen Not Detected; U Methamphetamine Screen DETECTED; U Opiates Screen Not Detected; U Oxycodone Screen Not Detected; U Phencyclidine Screen Not Detected
[2024-09-10] MEDS ORDERED: OLANZapine 5 MG Tab PO ONE (15:00)
[2024-09-10] MEDS ORDERED: JARDIANCE25 MG PO (15:05)
[2024-09-10] MEDS ORDERED: Dextrose 50% 50 ML Vial IV PRN (15:25)
[2024-09-10] MEDS ORDERED: Potassium Chloride 40 MEQ in NS 250 ML IV STA (15:28)
[2024-09-10] MEDS ORDERED: Insulin Human Regular 100 UNIT in NS 100 ML IV SCH (15:30)
[2024-09-10 15:55] LABS: Source, Urine Clean Catch
[2024-09-10] MEDS ORDERED: Lactated Ringer's 1,000 ML IV SCH ×2 (16:00→16:35)
[2024-09-10 16:13] LABS: Appearance, Urine Clear (Clear); Bilirubin, Urine Neg (Neg); Blood, Urine Neg (Neg); Glucose Qualitative, Urine 4+ (Neg); Ketones, Urine 2+ (Neg); Leukocyte Esterase, Urine Neg (Neg); Nitrite, Urine Neg (Neg); Protein, Urine Neg (Neg); Specific Gravity, Urine 1.015 (1.003-1.022); Urobilinogen, Urine NORM (Normal)
[2024-09-10 16:19] LABS: Color, Urine Pale Yellow (P-Yellow)
[2024-09-10 16:42] LABS: Bun/Creatinine Ratio 34.7 (12.0-20.0); Calcium, Blood 10.2 mg/dL (8.5-10.1); Creatinine, Blood 0.92 mg/dL (0.60-1.20); Potassium, Blood 4.8 mmol/L (3.5-5.5)
[2024-09-10 16:45] LABS: Base Excess Venous 0 mmol/L; Bicarbonate Venous 23.6 mmol/L (24.0-30.0); PCO2 Venous 48.6 mmHg (38-42); pH Blood Venous 7.33 (7.34-7.37)
[2024-09-10] MEDS ORDERED: NS 250 ML IV PRN (17:25)
[2024-09-10] MEDS ORDERED: Metoprolol Succinate 50 MG TABCR PO SCH (18:00)
[2024-09-10 18:31] LABS: Bun/Creatinine Ratio 37.2 (12.0-20.0); Calcium, Blood 9.8 mg/dL (8.5-10.1); Creatinine, Blood 0.75 mg/dL (0.60-1.20); Potassium, Blood 3.8 mmol/L (3.5-5.5)
[2024-09-10] MEDS ORDERED: LORazepam 2 MG/ML 1ML Injection ONE (18:41)
[2024-09-10] MEDS ORDERED: LORazepam 2 MG/ML 1ML Injection IV PRN (18:45)
[2024-09-10] MEDS ORDERED: dexmedeTOMIDine 100 ML IV SCH (18:55)
--- NOTE | 2024-09-10 18:55 | NUR ---
PT ARRIVAL/SHIFT SUMMARY... PT ARRIVED TO THE UNIT AT 1705. PT WAS SLEEPING AND CONFUSED. PT'S BP WAS STABLE WITH MAPS>65. HR IS LABILE UNKNOWN RHYTHM IN THE 90'S-150'S. EKG WAS DONE THAT SHOWED AND UNKNOWN RHYTHM AND "UNSPECIFIED PACEMAKER FAILURE." PROVIDER NOTIFIED. INSULIN GTT RUNNING AT 3.7U/HR. LR AT 75MLS/HR. PT IS ON RA WITH O2 SATS>95%. PT IS IN AN ATTENDS. AT THE 1830 CBG CHECK THE PT REFUSED THE CBG CHECK AND BECAME AGRESSIVE AND VERBALLY ABUSIVE AND THREATENING TOWARDS STAFF. THE PROVIDER WAS CALLED AND NEW ORDERS FOR ATIVAN IV AND PRECEDEX GTT WERE OBTAINED.
[2024-09-10 19:30] VITALS: BP 127/83
[2024-09-10] MEDS ORDERED: Metoprolol Tartrate 1 MG/ML 5 ML VIAL IV ONE (19:35)
[2024-09-10 20:00] VITALS: BP 122/88
[2024-09-10 20:14] LABS: Bun/Creatinine Ratio 35.5 (12.0-20.0); Calcium, Blood 9.7 mg/dL (8.5-10.1); Creatinine, Blood 0.79 mg/dL (0.60-1.20); Potassium, Blood 4.1 mmol/L (3.5-5.5)
[2024-09-10 20:30] VITALS: BP 130/86
[2024-09-10 21:00] VITALS: BP 122/63
[2024-09-10 22:00] VITALS: BP 138/83
[2024-09-10 22:07] LABS: Bun/Creatinine Ratio 38.2 (12.0-20.0); Calcium, Blood 9.2 mg/dL (8.5-10.1); Creatinine, Blood 0.76 mg/dL (0.60-1.20); Potassium, Blood 3.7 mmol/L (3.5-5.5)
[2024-09-10] MEDS ORDERED: Insulin Glargine-Yfgn 100 Unit/mL 3 ML SYR SC SCH (22:36)
[2024-09-10] MEDS ORDERED: Sodium Chloride 0.45% 1,000 ML IV SCH (22:40)
[2024-09-10 23:00] VITALS: BP 103/56
[2024-09-11] VITALS (21 sets, daily range): BP systolic 103–170; BP diastolic 59–136
[2024-09-11] MEDS ORDERED: Metoprolol Tartrate 1 MG/ML 5 ML VIAL IV PRN (03:15)
[2024-09-11 03:54] LABS: BASOPHILS ABSOLUTE AUTO 0.08 K/mm3 (0.00-0.23); BASOPHILS PERCENT AUTO 1 % (0-2); EOSINOPHILS ABSOLUTE AUTO 0.15 K/mm3 (0.00-0.68); EOSINOPHILS PERCENT AUTO 1 % (0-6); Hematocrit 50.1 % (37.0-53.0); Hemoglobin 16.4 g/dL (13.5-17.5); IMMATURE GRAN ABSOLUTE AUTO 0.04 K/mm3 (0.00-0.10); IMMATURE GRAN PERCENT AUTO 0 % (0-1); LYMPHOCYTES ABSOLUTE AUTO 2.77 K/mm3 (0.84-5.20); LYMPHOCYTES PERCENT AUTO 21 % (21-46); MONOCYTES ABSOLUTE AUTO 1.05 K/mm3 (0.16-1.47); MONOCYTES PERCENT AUTO 8 % (4-13); Mean Corpuscular HGB 31.7 pg (26.0-34.0); Mean Corpuscular HGB Conc 32.7 g/dL (31.5-36.5); Mean Corpuscular Volume 97 fL (80-100); Mean Platelet Volume 11.6 fL (9.1-12.4); NEUTROPHILS ABSOLUTE AUTO 9.07 K/mm3 (1.96-9.15); NEUTROPHILS PERCENT AUTO 69 % (41-73); Platelet Count 169 K/mm3 (150-400); RDW Coefficient Variation 12.8 % (11.7-14.2); RDW Standard Deviation 46.3 fL (35.1-46.3); Red Blood Cell Count 5.17 M/mm3 (4.30-5.90); White Blood Cell Count 13.16 K/mm3 (4.00-11.30)
[2024-09-11 04:15] LABS: Albumin, Blood 3.2 g/dL (3.4-5.0); Bilirubin, Total 0.5 mg/dL (0.1-1.0); Bun/Creatinine Ratio 35.2 (12.0-20.0); Calcium, Blood 9.2 mg/dL (8.5-10.1); Creatinine, Blood 0.82 mg/dL (0.60-1.20); Globulin, Blood 3.1 g/dL (2.2-4.0); Potassium, Blood 3.9 mmol/L (3.5-5.5); Total Protein, Blood 6.3 g/dL (6.4-8.2)
--- NOTE | 2024-09-11 05:39 | NUR ---
SHIFT SUMMARY THIS RN AT BEDSIDE T/O ENTIRE SHIFTR/T PT PULLING LINES AND ATTEMPTING TO GET OOB. PT BECAME INCREASINGLY ALERT AND MORE ORIENTED THAN START OF SHIFT. ABLE TO ANSWER QUESTIONS APPROPRIATLY, MORE COOPERATIVE WITH STAFF, AGREEABLE WITH CARE. STILL HAS MUMBLED SPEECH. REMAINED ON ROOM AIR T/O SHIFT, SATS > 96%. ON CORPORATE FINANCIAL ANALYST, IRREGULAR RATE/RHYTHM. HR 90-100'S CURRENTLY. ONE DOSE OF IV LOPRESSOR 5MG ADMINISTERED AT START OF SHIFT FOR HR REACHING 160'S. ORDERS FOR PRN LOPRESSOR PLACED. PT HAS PACER THAT HAS UNSPECIFIED FAILURE PER ECG READING. INTERROGATION OF PACER WAS ATTEMPTED ON DAY SHIFT YESTERDAY BUT WAS UNSUCCESSFUL. PT WAS ASYMPTOMATIC DURING THESE EVENTS. PT IS NPO, DENIES N/V. NO BM. ATTENDS IN PLACE R/T INCONTINENCE. SWETHAWICK NOT PLACED R/T PT PULLING ON LINES/CORDS T/O SHIFT. INSULIN DRIP TURNED OFF AT 2240 THIS SHIFT, SC INSULIN STARTED. 1/2 NS STARTED R/T LABS REFLECTING HYPERNATREMIA. ONE DOSE OF ATIVAN GIVEN THIS SHIFT. PT WAS ABLE TO SLEEP MOST OF THIS SHIFT. NO OTHER ACUTE EVENTS.
[2024-09-11] MEDS ORDERED: Pantoprazole Sodium 40 MG Injection IV SCH (06:00)
[2024-09-11] MEDS ORDERED: Pantoprazole Sodium 20 MG Tab PO SCH (06:00)
[2024-09-11] MEDS ORDERED: Clopidogrel Bisulfate 75 MG Tab PO SCH (09:00)
[2024-09-11] MEDS ORDERED: Tamsulosin HCl 0.4 MG Cap PO SCH ×2 (09:00→21:45)
[2024-09-11] MEDS ORDERED: Atorvastatin 40 MG Tab PO SCH (09:00)
[2024-09-11] MEDS ORDERED: Gabapentin 100 MG Cap PO SCH (09:00)
[2024-09-11] MEDS ORDERED: Enoxaparin 40 MG/0.4 ML SYR SC SCH (09:00)
[2024-09-11] MEDS ORDERED: Insulin Human Lispro 100 Units/ML 3ML Syringe SC SCH ×2 (12:30)
[2024-09-11 16:28] LABS: Calcium, Blood 9.6 mg/dL (8.5-10.1); Creatinine, Blood 0.9 mg/dL (0.60-1.20); Potassium, Blood 3.5 mmol/L (3.5-5.5)
[2024-09-11] MEDS ORDERED: LORazepam 2 MG/ML 1ML Injection IV PRN (16:30)
[2024-09-11] MEDS ORDERED: Metoprolol Succinate 50 MG TABCR PO SCH (17:00)
--- NOTE | 2024-09-11 18:46 | NUR ---
PT HAS BECOME INCREASINGLY AWARE OF SURROUNDINGS THROUGHOUT DAY. STILL CONFUSED TO TIME AND SITUATION. ABLE TO EAT NOW AND TAKE MEDICATIONS. STILL NEEDS HELP STANDING TO URINATE. PACER WAS INTERROGATED AND (FAWN) HAS RESULTS.
--- NOTE | 2024-09-11 20:45 | NUR ---
ASSUMPTION OF CARE CARE OF THIS PT ASSUMED AT 1900 FOLLOWING BEDSIDE SHIFT REPORT FROM DAY RN. PT LYING IN BED, ALERT AND ORIENTED TO SELF ONLY. PT CALM AND REDIRECTABLE THOUGH, COOPERATIVE WITH CARE. PT IS TRYING TO GET OUT OF BED, HALF THE TIME FOR URGENCY, WHICH IS A CHRONIC ISSUE FOR THE PT- GOT WORSE FOLLOWING HOSPITALIZATION IN [place] DURING WHICH HE RECEIVED A NEGRON. PT GETS UP ON SIDE OF BED WITH WALKER AND ONE PERSON ASSIST, TO USE URINAL. MONITOR SHOWS A PACEMAKER ATTEMPTING TO PACE ATRIA AND VENTRICLES. IT APPEARS THE VENTRICLES ARE RESPONDING MORE OFTEN THAN THE ATRIA. A SECOND INTERROGATION WAS PERFORMED TODAY AND WAS REPORTEDLY SUCCESSFUL. RESULTS OF WHICH ARE NOT READILY AVAILABLE TO REVIEW. RATE IS IN THE 90'S AND OCCASIONALLY JUMPS TO 120'S BUT RETURNS BELOW 100/MIN WITHIN A MIN. BP IS STABLE. PULSES INTACT. LUNG SONDS DIMINISHED THROUGHOUT, RIGHT MORE THAN LEFT. OTHERWISE CLEAR. RA PRODUCING 98% SAT. PT DENIES CHEST PAIN/PRESSURE, SOB, AB PAIN, N/V COUGH, DIZZINESS. PT ASKS REPEATEDLY ABOUT WHAT HIS PLAN OF CARE IS. HE WOULD LIKE TO GO HOME BUT HE IS TOO CONFUSED AND WEAK TO WALK ALONE AND DOES NOT HAVE A RIDE. PT SAID HE ANXIOUS AND AN ANXIOLYTIC MAY BE TRIED TO CALM THE PT DOWN SO HE STOPS ATTEMPTING TO GET OUT OF BED. PT HAS CALL LIGHT HANDY. WILL REVIEW AND CONTINUE PLAN OF CARE, MAKING NECESARY ADJUSTMENTS NEEDED.
[2024-09-11 20:49] LABS: Bun/Creatinine Ratio 29.6 (12.0-20.0); Calcium, Blood 8.4 mg/dL (8.5-10.1); Creatinine, Blood 0.85 mg/dL (0.60-1.20); Potassium, Blood 3.2 mmol/L (3.5-5.5)
[2024-09-11] MEDS ORDERED: Insulin Glargine-Yfgn 100 Unit/mL 3 ML SYR SC SCH (21:00)
[2024-09-11] MEDS ORDERED: QUEtiapine Fumarate 25 MG Tab PO PRN (22:50)
[2024-09-12] VITALS (10 sets, daily range): BP systolic 101–140; BP diastolic 54–93
[2024-09-12 04:21] LABS: Bun/Creatinine Ratio 29.2 (12.0-20.0); Calcium, Blood 8.3 mg/dL (8.5-10.1); Creatinine, Blood 0.82 mg/dL (0.60-1.20); Phosphorus, Blood 3.4 mg/dL (2.5-4.9); Potassium, Blood 3.4 mmol/L (3.5-5.5)
--- NOTE | 2024-09-12 05:22 | NUR ---
SHIFT SUMMARY PT LYING IN BED IN VEST RESTRAINT, ALERT AND ORIENTED TO SELF. PT CONTINUES TO TRY AND REMOVE LINES AND CORDS AND INTERMITTENTLY PUSHES AGAINST VEST, TRYING TO FIGURE OUT HOW TO REMOVE. PT RECEIVED ONE DOSE OF PRN SEROQUEL THAT WAS STARTED LAST NIGHT. HE ALSO RECEIVED ATIVAN 1MG X 1 EARLY IN SHIFT, WHICH POTENTIALLY WORSENED CONFUSION, THOUGH THIS COULD HAVE BEEN COINCIDENTAL SUN DOWNING. NO PAIN. AFEBRILE. PT STAYED IN AN IRREGULAR PACED RHYTHM. RESULTS OF "SUCCESSFUL" INTERROGATION UNKNOWN. BP STABLE ALL SHIFT. RA PRODUCED >95% SATURATIONS THROUGHOUT SHIFT. LUNGS DIMINISHED IN ALL BUT UPPER LOBES, WORSE ON RIGHT. NO CHEST PAIN/PRESSURE, SOB. NO AB PAIN. NO BM DURING SHIFT, SOME FLATUS PASSED. NO N/V. PT ATE CRACKERS/CHEESE AND ONE PUDDING WITHOUT ISSUE. PT URINATED 500ML USING URINAL STANDING AT BEDSIDE WITH WALKER AND 1 PERSON SBA. HE EXPERIENCED SEVERE URGENCY DURING FIRST HALF OF SHIFT. FLOMAX, WHICH HAD NOT BEEN GIVEN FOR TWO DAYS WAS SWITCHED FROM A DAY MED TO NIGHT MED WITH FIRST DOSE GIVEN. THIS APPEARED TO HELP WITH URINARY SYMPTOMS. PT HAS PENIS TEEPEE IN PLACE. BEDSIDE REPORT GIVEN TO ONCVALENTIN DAY RN. PT HAS CALL LIGHT IN BED WITHIN REACH.
[2024-09-12] MEDS ORDERED: Potassium Chloride 20 MEQ TabCR PO ONE (06:50)
[2024-09-12] MEDS ORDERED: Empagliflozin 25 MG TAB PO SCH (09:00)
[2024-09-12] MEDS ORDERED: Ondansetron 4 MG SoluTab MM PRN (09:40)
--- NOTE | 2024-09-12 23:18 | NUR ---
TRANSFER TO THE MEDICAL FLOOR PATIENT HAS JUST TRANSFERRED TO THE MEDIAL FLOOR. HE HAS BEEN ORIENTED TO THE UNIT. HE IS ORIENTED TO PERSON AND PLACE. HE COULD REMEMBER HIS BIRTHDAY BUT NOT HIS AGE. HE DOES NOT KNOW WHY HE IS HERE. IV IS PATENT AND FLUSHING. CLEAN DRESSING PLACED. PATIENT DENIES PAIN AND IS REQUESTING SOMETHIN TO DRINK. IT WILL BE BROUGHT TO HIM. CALL LIGHT WITHIN REACH. BED ALARM IS SET. SAFETY PRECAUTIONS ARE BEING MAINTAINED.
[2024-09-13 03:32] VITALS: BP 129/86
--- NOTE | 2024-09-13 05:54 | NUR ---
SHIFT SUMMARY PATIENT HAS BEEN VERY CONFUSED TONIGHT. HE KEEPS ASKING WHY HE IS HERE. HE DOES NOT REMEMBER ANYTHING ABOUT HIS ADMISSION. PATIENT IS IMPULSIVE AND FORGETS TO USE HIS CALL LIGHT WHEN GETTING OUT OF BED. BED ALARM IS SET. PATIENT IS ORIENTED X2. HE HAS HIS CALL LIGHT WITHIN REACH. SAFETY PRECAUTIONS ARE BEING MAINTAINED. VITAL SIGNS ARE STABLE.
[2024-09-13 07:35] VITALS: BP 113/71
--- NOTE | 2024-09-13 10:15 | NUR ---
AM ASSESSMENT NOTE: PATIENT A/O TO SELF ONLY, CONFUSED. THIS RN ASKED PATIENT OF WERE HE AT, PATIENT REPLIED STATED, "I'M IN THE HOSPITAL IN [facility]. PATIENT CALM, PLEASANT, FOLLOW DIRECTION AND COOPERATIVE c CARE. PATIENT DENIES CP/PRESSURE, SOB AND DIZZINESS. PATIENT BLOOD SUGAR BEFORE BREAKFAST 169, ATE 100% FOR BREAKFAST AND RECEIVED INSULIN PER ORDER. THIS RN CALLED PATIENT SPOUSE (AIDA) AT 0950 TO VERIFY PATIENT BASELINE MENTATION. PER AIDA, PATIENT NORMALLY ALERT AND ORIENTED, BUT 2 DAYS BEFORE COMING TO THE HOSPITAL HE PROGRESSIVELY WORSE AND CONFUSED. NOTIFIED DR. СЕРГЕЙ arias THIS UPDATE. PER DR. RUSHING SHE WILL ROUND THE PATIENT.
[2024-09-13 15:31] VITALS: BP 96/64
[2024-09-13] MEDS ORDERED: METO50ER PO (15:43)
[2024-09-13] MEDS ORDERED: ONDA4ODT MM (15:44)
--- NOTE | 2024-09-13 17:39 | NUR ---
SHIFT/DISCHARGE SUMMARY: PATIENT A/O TO SELF ONLY, CONFUSED, ANXIOUS AND AGITATED. PATIENT HAS BEEN WANTING TO LEAVE THE HOSPITAL SINCE THIS MORNING. PATIENT MEDICATED FOR AGITATION PER EMAR c MOD EFFECT. DR. NARVAEZ SPOKE TO PATIENT (AIDA) OVER THE PHONE REGARDING PATIENT CONDITION AND PLAN OF CARE. SPOUSE VERBALIZED UNDERSTANDING AND AGREED FOR PATIENT TO DISCHARGE HOME. VITALS SIGNS REVIEWED. PIV DC'D. PATIENT DISCHARGE HOME c [facility]. DISCHARGE INSTRUCTIONS PACKET GIVEN TO SPOUSE. PATIENT AND SPOUSE EDUCATED ON ADMITTING DX'S, TX, NEW RX AND TO F/U c PCP. THEY BOTH VERBALIZED UNDERSTANDING AND NO FURTHER QUESTIONS. PATIENT LEFT THE ROOM AT 1719, TRANSPORTED VIA WHEELCHAIR TO PATIENT ENTRANCE.
[2024-09-14] MEDS ORDERED: Pantoprazole Sodium 20 MG Tab PO SCH (06:00)
== END 2024-09-13 17:20 | disposition home health service (06) | DRG 637 ==
LOC: ER 11:18 → ICUE 11:19 → MEDS 09-12 23:00
PROVIDERS: Emergency Medicine; Student in an Organized Health Care Education/Training Program; ADMIT Internal Medicine
DX: E11.00 Type 2 diabetes mellitus with hyperosmolarity without nonketotic hyperglycemic-hyperosmolar coma (NKHHC) (principal); E43 Unspecified severe protein-calorie malnutrition; G92.8 Other toxic encephalopathy; G93.41 Metabolic encephalopathy; E87.0 Hyperosmolality and hypernatremia; I50.32 Chronic diastolic (congestive) heart failure; Z68.1 Body mass index [BMI] 19.9 or less, adult; E87.20 Acidosis, unspecified; I25.10 Atherosclerotic heart disease of native coronary artery without angina pectoris; I11.0 Hypertensive heart disease with heart failure; K21.9 Gastro-esophageal reflux disease without esophagitis; F15.10 Other stimulant abuse, uncomplicated; E86.0 Dehydration; E78.5 Hyperlipidemia, unspecified; R00.0 Tachycardia, unspecified; F17.200 Nicotine dependence, unspecified, uncomplicated; Z79.4 Long term (current) use of insulin; Z79.02 Long term (current) use of antithrombotics/antiplatelets; Z95.810 Presence of automatic (implantable) cardiac defibrillator; Z90.49 Acquired absence of other specified parts of digestive tract; Z79.84 Long term (current) use of oral hypoglycemic drugs; Z91.148 Patient's other noncompliance with medication regimen for other reason
CPT/HCPCS: 36415; 71045; 80047; 80048; 80053; 81003; 82607; 82746; 82803; 82947; 83036; 83735; 83930; 84100; 84484; 85014; 85025; 93005; 93010; 93306; 94762; 96360; 96361; 96372; 96374; 96375; 96376; 97116; 97161; 97530; 99285-25; A9270; G0378; J1650; J1815; J2060; J2470; J3480; J7030; J7050; J7120

== ENCOUNTER 2024-09-18 13:09 | Inpatient (IN) | payer MEDICARE ==
[~2024-09-18] VITALS: Ht 188 cm; Wt 64.1 kg
[2024-09-18] VITALS (15 sets, daily range): BP systolic 91–152; BP diastolic 60–105
[~2024-09-18 13:09] MED LIST changes: +JARDIANCE25 MG PO; +METO50ER PO; +ONDA4ODT MM
[2024-09-18 13:26] LABS: BASOPHILS ABSOLUTE AUTO 0.03 K/mm3 (0.00-0.23); BASOPHILS PERCENT AUTO 1 % (0-2); EOSINOPHILS ABSOLUTE AUTO 0.01 K/mm3 (0.00-0.68); EOSINOPHILS PERCENT AUTO 0 % (0-6); Hematocrit 43.2 % (37.0-53.0); Hemoglobin 13.9 g/dL (13.5-17.5); IMMATURE GRAN ABSOLUTE AUTO 0.02 K/mm3 (0.00-0.10); IMMATURE GRAN PERCENT AUTO 0 % (0-1); LYMPHOCYTES ABSOLUTE AUTO 0.58 K/mm3 (0.84-5.20); LYMPHOCYTES PERCENT AUTO 12 % (21-46); MONOCYTES ABSOLUTE AUTO 0.48 K/mm3 (0.16-1.47); MONOCYTES PERCENT AUTO 10 % (4-13); Mean Corpuscular HGB Conc 32.2 g/dL (31.5-36.5); Mean Corpuscular Volume 100 fL (80-100); Mean Platelet Volume 12.4 fL (9.1-12.4); NEUTROPHILS ABSOLUTE AUTO 3.76 K/mm3 (1.96-9.15); NEUTROPHILS PERCENT AUTO 77 % (41-73); Platelet Count 199 K/mm3 (150-400); RDW Coefficient Variation 12.6 % (11.7-14.2); RDW Standard Deviation 46.5 fL (35.1-46.3); Red Blood Cell Count 4.34 M/mm3 (4.30-5.90); White Blood Cell Count 4.88 K/mm3 (4.00-11.30)
[2024-09-18] MEDS ORDERED: NS 500 ML IV SCH (13:30)
[2024-09-18 14:38] LABS: Albumin, Blood 3.1 g/dL (3.4-5.0); Albumin/Globulin Ratio 0.9 (0.8-1.8); Bilirubin, Total 0.4 mg/dL (0.1-1.0); Bun/Creatinine Ratio 20.2 (12.0-20.0); Calcium, Blood 9.1 mg/dL (8.5-10.1); Creatinine, Blood 0.74 mg/dL (0.60-1.20); Globulin, Blood 3.5 g/dL (2.2-4.0); Potassium, Blood 4.4 mmol/L (3.5-5.5); Total Protein, Blood 6.6 g/dL (6.4-8.2)
[2024-09-18] MEDS ORDERED: Insulin Human Regular 100 UNIT in NS 100 ML IV SCH (14:40)
[2024-09-18] MEDS ORDERED: NS 1,000 ML IV SCH ×2 (14:55→15:40)
[2024-09-18] MEDS ORDERED: Dextrose 50% 50 ML Syringe IV PRN (15:45)
[2024-09-18] MEDS ORDERED: Potassium Chl 20MEQ/Water100ML 100 ML IV STA (15:46)
[2024-09-18] MEDS ORDERED: Lactated Ringer's 1,000 ML IV SCH ×2 (15:50)
[2024-09-18] MEDS ORDERED: Lactated Ringer's 1,000 ML IV ONE (16:01)
[2024-09-18 16:24] LABS: Bun/Creatinine Ratio 21.8 (12.0-20.0); Calcium, Blood 9.4 mg/dL (8.5-10.1); Creatinine, Blood 0.74 mg/dL (0.60-1.20); Glucose, Blood 1152 mg/dL (70-99); Potassium, Blood 3.8 mmol/L (3.5-5.5)
[2024-09-18] MEDS ORDERED: Lactated Ringer's 500 ML IV ONE (17:55)
--- NOTE | 2024-09-18 18:08 | NUR ---
PT ARRIVAL/SHIFT SUMMARY... PT ARRIVED TO THE UNIT AT 1700, PT RESPONDS TO VERBAL STIMULI AND WILL ANSWER SOME QUESTIONS AT TIMES BUT THEN REFUSES TO ANSWER AT OTHER TIMES. PT IS 100% PACED WITH RATES IN THE 100'S-140'S, BP IS STABLE WITH MAPS>65. PT IS NOTED TO HAVE 1+ EDEMA TO HIS BLE. PT HAS A STAGE 1 TO HIS COCCYX THAT BLANCHES IN SOME AREAS BUT NOT ALL, PROVIDER NOTIFIED. PT IS ON RA WITH O2 SATS>95% L/S CLEAR T/O DIM IN THE BASES. RR IN THE 30'S. PT IS ANXIOUS AND THRASHING IN THE BED, PT HAD PULLED ON OF HIS IVs WHILE TRYING TO CLIMB OUT OF THE BED, WHEN ASKED WHERE THE PT WAS GOING HE SAID TO GO PEE. THIS RN NOTED THE PT'S LOWER ABD WAS DISTENDED, A BLADDER SCAN WAS DONE THAT SHOWED >999MLS THE PROVIDER WAS NOTIFIED AND ORDERS FOR A NEGRON WERE GIVEN. ONCE THE NEGRON WAS PLACED AND THE PT'S BLADDER WAS DRAINED THE PT CALMED AND FELL ASLEEP. THE PT HAS LR BOLUS GOING THEN AN ORDER FOR LR AT 200MLS/HR, THE INSULIN DRIP IS RUNNING AT 9.5U/HR PER ORDERS.
--- NOTE | 2024-09-18 18:25 | NUR ---
WOUND.... PT IS NOTED TO HAVE A STAGE 1 PRESSURE ULCER TO HIS COCCYX/SACRUM, MOST OF THE RED AREA BLANCHES BUT THERE IS A SMALL AREA THAT DOES NOT ON THE RIGHT BUTTOCKS. MEPILEX IN PLACE DR. CREWS NOTIFIED.
[2024-09-18 19:20] LABS: Glucose, Blood 654 mg/dL (70-99)
[2024-09-18 19:31] LABS: Glucose, Blood 547 mg/dL (70-99)
[2024-09-18 20:53] LABS: Bun/Creatinine Ratio 17.1 (12.0-20.0); Calcium, Blood 9.8 mg/dL (8.5-10.1); Creatinine, Blood 0.76 mg/dL (0.60-1.20); Potassium, Blood 3.4 mmol/L (3.5-5.5)
[2024-09-18] MEDS ORDERED: Lactated Ringer's 0 ML IV ONE (20:54)
[2024-09-18] MEDS ORDERED: Sodium Chloride 0.45% 1,000 ML IV SCH (22:35)
[2024-09-18] MEDS ORDERED: Potassium Chloride 40 MEQ in NS 250 ML IV ONE (22:40)
[2024-09-18] MEDS ORDERED: Insulin Glargine-Yfgn 100 Unit/mL 3 ML SYR SC SCH (23:00)
[2024-09-19] VITALS (21 sets, daily range): BP systolic 82–134; BP diastolic 49–100
[2024-09-19 00:39] LABS: Bun/Creatinine Ratio 16.3 (12.0-20.0); Calcium, Blood 9.8 mg/dL (8.5-10.1); Creatinine, Blood 0.67 mg/dL (0.60-1.20); Potassium, Blood 3.5 mmol/L (3.5-5.5)
[2024-09-19 04:26] LABS: BASOPHILS ABSOLUTE AUTO 0.04 K/mm3 (0.00-0.23); BASOPHILS PERCENT AUTO 0 % (0-2); EOSINOPHILS ABSOLUTE AUTO 0.03 K/mm3 (0.00-0.68); EOSINOPHILS PERCENT AUTO 0 % (0-6); Hematocrit 43.4 % (37.0-53.0); Hemoglobin 14.6 g/dL (13.5-17.5); IMMATURE GRAN ABSOLUTE AUTO 0.03 K/mm3 (0.00-0.10); IMMATURE GRAN PERCENT AUTO 0 % (0-1); LYMPHOCYTES ABSOLUTE AUTO 2.23 K/mm3 (0.84-5.20); LYMPHOCYTES PERCENT AUTO 18 % (21-46); MONOCYTES ABSOLUTE AUTO 1.08 K/mm3 (0.16-1.47); MONOCYTES PERCENT AUTO 9 % (4-13); Mean Corpuscular HGB 31.9 pg (26.0-34.0); Mean Corpuscular HGB Conc 33.6 g/dL (31.5-36.5); Mean Platelet Volume 11.5 fL (9.1-12.4); NEUTROPHILS ABSOLUTE AUTO 9.04 K/mm3 (1.96-9.15); NEUTROPHILS PERCENT AUTO 73 % (41-73); Platelet Count 237 K/mm3 (150-400); RDW Coefficient Variation 12.3 % (11.7-14.2); RDW Standard Deviation 42.5 fL (35.1-46.3); Red Blood Cell Count 4.57 M/mm3 (4.30-5.90); White Blood Cell Count 12.45 K/mm3 (4.00-11.30)
[2024-09-19 04:27] LABS: Mean Corpuscular Volume 95 fL (80-100)
[2024-09-19 04:58] LABS: Albumin, Blood 2.8 g/dL (3.4-5.0); Albumin/Globulin Ratio 0.8 (0.8-1.8); Bilirubin, Total 0.4 mg/dL (0.1-1.0); Bun/Creatinine Ratio 14.5 (12.0-20.0); Calcium, Blood 9.6 mg/dL (8.5-10.1); Creatinine, Blood 0.76 mg/dL (0.60-1.20); Globulin, Blood 3.3 g/dL (2.2-4.0); Potassium, Blood 3.8 mmol/L (3.5-5.5); Total Protein, Blood 6.1 g/dL (6.4-8.2)
--- NOTE | 2024-09-19 05:41 | NUR ---
SHIFT SUMMARY PT HAS BECOME MORE ALERT T/O THIS SHIFT. ABLE TO ANSWER BASIC YES/NO QUESTIONS BUT NOT ABLE TO ANSWER ORIENTATION QUESTIONS. REMAINED COOPERATIVE WITH CARE AND WAS ABLE TO REST T/O THE NIGHT. HR REMAINED BETWEEN 100-140'S MOST OF NIGHT, BP STABLE. PT REMAINED ON ROOM AIT W/ SATS >94%. PT DENIED ANY PAIN. NEGRON DRAINING LOTS OF PALE YELLOW URINE. NO BM THIS SHIFT. TOLERATING SIPS OF WATER THIS AM. INSULIN GTT TURNED OFF AROUND 2130 AND SWITCHED TO SC REGIMEN AROUND 0000. CBG'S AND SHORT ACTING SCHEDULED FOR Q4. NO ACUTE EVENTS THIS SHIFT.
[2024-09-19] MEDS ORDERED: Enoxaparin 40 MG/0.4 ML SYR SC SCH (09:00)
--- NOTE | 2024-09-19 09:31 | NUR ---
ASSUMPTION OF CARE ASSUME CARE OF PT AT 0700 WITH SAFIA HUERTA, RECIEVED REPORT FROM LELA HUERTA. PT IS ALERT AND ABLE TO MAKE NEEDS KNOWN, PT IS AFEBRILE. CONTINUOUS CARDIAC MONITORING IN PLACE, PT IS 100% PACED WITH HR IN 100'S-140'S, SBP IS STABLE WITH MAP > 65. PT IS ON ROOM AIR WITH SPO2 > 92%. NEGRON IS PATENT AND DRAINING TO GRAVITY. SEE FULL BODY SHIFT ASSESSMENT FO MORE DETAILS.
--- NOTE | 2024-09-19 09:47 | NUR ---
THREATENING TO LEAVE AMA PT IS STATING HE WANTS TO LEAVE AMA, RISKS OF LEAVING AMA HAVE BEEN MADE KNOWN TO HIM. PT STILL WILLING TO LEAVE AMA. AT BEDSIDE, DISCUSSION HELD WITH HOSPITALIST. AT THIS TIME PT AGREED TO STAY " LONG HE CAN EAT." DIET ORDERED PER HOSPITALIST. WILL CONTINUE TO MONITOR.
[2024-09-19] MEDS ORDERED: Metoprolol Tartrate 1 MG/ML 5 ML VIAL IV PRN (10:05)
[2024-09-19] MEDS ORDERED: Insulin Human Lispro 100 Units/ML 3ML Syringe SC SCH ×2 (12:30)
[2024-09-19] MEDS ORDERED: Metoprolol Succinate 50 MG TABCR PO SCH (13:00)
[2024-09-19] MEDS ORDERED: Clopidogrel Bisulfate 75 MG Tab PO SCH (13:00)
[2024-09-19] MEDS ORDERED: Atorvastatin 40 MG Tab PO SCH (13:00)
[2024-09-19] MEDS ORDERED: Lisinopril 5 MG Tab PO SCH (13:00)
[2024-09-19 14:26] LABS: Bun/Creatinine Ratio 16.9 (12.0-20.0); Creatinine, Blood 0.71 mg/dL (0.60-1.20); Potassium, Blood 3.1 mmol/L (3.5-5.5)
[2024-09-19] MEDS ORDERED: OLANZapine ODT 5 MG Tab MM PRN (14:35)
[2024-09-19] MEDS ORDERED: Sodium Chloride 0.45% 500 ML IV SCH (14:40)
[2024-09-19] MEDS ORDERED: Potassium Chloride 20 MEQ TabCR PO ONE (15:00)
--- NOTE | 2024-09-19 15:02 | NUR ---
PALLIATIVE CARE NOTE: MET WITH PT AND AIDA IN PT ROOM. PT IS AWAKE AND ABLE TO PARTICIPATE IN MEANINGFUL DISCUSSION. PT IS EATING A SANDWICH, ON RA, APPEARS CACHECTIC, PALE AND DISHEVELED. DISCUSSED GOALS OF CARE WITH PT AND . PT STATES HE DOESN'T TAKE HIS MEDICATIONS BECAUSE THEY MAKE HIM FEEL SICK. PT STATES HE HAS TRIED TAKING NAUSEA MEDICATIONS WITH HIS MEDICATIONS AND IT DOESN'T WORK. PT STATES HE WOULD TAKE HIS MEDICATIONS IF THEY DID NOT MAKE HIM FEEL SICK. REPORTS HOME [facility] SERVICES WAS STARTED. THEY SAW THE VICTORIAN LITERATURE PROFESSOR WITH HOME [facility] PRIOR TO THIS ADMISSION BUT HADN'T SEEN THE RN YET. AND PT ARE WANTING [facility] TO RESUME AND WOULD WELCOME A VISIT FROM A RN FOR ASSISTANCE WITH MEDICATION MANAGEMENT.
--- NOTE | 2024-09-19 17:44 | NUR ---
END OF SHIFT SUMMARY PT IS ALERT AND ABLE TO MAKE NEEDS KNOWN, PT IS AEFBRILE. BP IS STABLE WITH MAP > 65. PT IS ON ROOM AIR WITH SPO2 > 92%. PT TOLERATED PO INTAKE WELL. PT USES URINAL, MOVES AROUND INDEPENDENTLY. WILL CONTINUE TO MONITOR AND REPORT TO ONCOMING SHIFT.
[2024-09-19] MEDS ORDERED: Magnesium Oxide 400 MG Tab PO ONE (18:00)
[2024-09-19] MEDS ORDERED: Insulin Glargine-Yfgn 100 Unit/mL 3 ML SYR SC SCH (21:00)
--- NOTE | 2024-09-19 21:14 | NUR ---
REPORT GIVEN TO BRADLEY MATOS. PT TAKEN TO ROOM 354 APPROXIMATELY [id number]
--- NOTE | 2024-09-20 02:51 | NUR ---
SHIFT ZA Admitted to room 354 (from icu) @ 2124, ALERT WITH FLAT AFFECT ,COOPERATIVE, ORIENTED TO PERSON PLACE TIME,PARTIAL TO SITUATION ,POOR INSIGHT AND NOTED TO BE FORGETFUL. HS CBG WAS 221& RECEIVED HIS INSULIN IN ICU BEFORE TRANSFER ,HS SNACK GIVEN HERE AND RESTING WELL OVERNIGHT WITH NO ACUTE EVENTS.SKIN WARM& DRY,NO DISTRESS ON ROOM AIR, VSS, REDNESS TO COCCYX AREA NOTED (BLANCHABLE)- PT TURNS SELF SIDE TO SIDE AT REGULAR INTERVALS
[2024-09-20 06:25] LABS: BASOPHILS ABSOLUTE AUTO 0.05 K/mm3 (0.00-0.23); BASOPHILS PERCENT AUTO 0 % (0-2); EOSINOPHILS ABSOLUTE AUTO 0.27 K/mm3 (0.00-0.68); EOSINOPHILS PERCENT AUTO 2 % (0-6); Hematocrit 47.4 % (37.0-53.0); Hemoglobin 15.2 g/dL (13.5-17.5); IMMATURE GRAN ABSOLUTE AUTO 0.05 K/mm3 (0.00-0.10); IMMATURE GRAN PERCENT AUTO 0 % (0-1); LYMPHOCYTES ABSOLUTE AUTO 3.64 K/mm3 (0.84-5.20); LYMPHOCYTES PERCENT AUTO 30 % (21-46); MONOCYTES ABSOLUTE AUTO 0.95 K/mm3 (0.16-1.47); MONOCYTES PERCENT AUTO 8 % (4-13); Mean Corpuscular HGB 32.1 pg (26.0-34.0); Mean Corpuscular HGB Conc 32.1 g/dL (31.5-36.5); Mean Platelet Volume 11.8 fL (9.1-12.4); NEUTROPHILS ABSOLUTE AUTO 7.28 K/mm3 (1.96-9.15); NEUTROPHILS PERCENT AUTO 60 % (41-73); Platelet Count 259 K/mm3 (150-400); RDW Coefficient Variation 12.8 % (11.7-14.2); Red Blood Cell Count 4.73 M/mm3 (4.30-5.90); White Blood Cell Count 12.24 K/mm3 (4.00-11.30)
[2024-09-20 06:27] LABS: Mean Corpuscular Volume 100 fL (80-100)
[2024-09-20 06:50] LABS: Albumin, Blood 2.9 g/dL (3.4-5.0); Albumin/Globulin Ratio 0.8 (0.8-1.8); Bilirubin, Total 0.4 mg/dL (0.1-1.0); Bun/Creatinine Ratio 19.4 (12.0-20.0); Calcium, Blood 9.1 mg/dL (8.5-10.1); Creatinine, Blood 0.77 mg/dL (0.60-1.20); Globulin, Blood 3.7 g/dL (2.2-4.0); Potassium, Blood 3.6 mmol/L (3.5-5.5); Total Protein, Blood 6.6 g/dL (6.4-8.2)
[2024-09-20] MEDS ORDERED: Magnesium Sulf 2 GM/Water 50ML 50 ML IV ONE (08:00)
[2024-09-20 08:02] VITALS: BP 102/75
[2024-09-20] MEDS ORDERED: NS 250 ML IV PRN (08:45)
[2024-09-20] MEDS ORDERED: Insulin Glargine-Yfgn 100 Unit/mL 3 ML SYR SC SCH (09:00)
[2024-09-20 09:18] VITALS: BP 110/71
--- NOTE | 2024-09-20 14:04 | NUR ---
NOTE COGNITION EVAL COMPLETE, REPORTED TO DR. PT BLOOD SUGAR 342 AT LUNCH TIME. PT RECEIVED SCHEDULED 7 UNITS OF INSULIN, REPORTED TO NO NEW ORDERS AT THIS TIME.
[2024-09-20 15:55] VITALS: BP 97/57
--- NOTE | 2024-09-20 16:47 | NUR ---
NOTE SAID SHE WILL BE HERE AT 10AM
--- NOTE | 2024-09-20 18:22 | NUR ---
SHIFT SUMMARY PT A&OX2. ORIENTED TO NAME, , YEAR, DISORIENTED TO SITUATION AND UNABLE TO STATE MONTH AND PLACE. PT COGNITIVE EVAL COMPLETE. PT IS SBA/INDEPENDENT IN ROOM. PT HAS ACHS BLOOD SUGAR CHECKS WITH SCHEDULED INSULIN. PT DID NOT GET EVENING DOSE DUE TP BLOOD SUGAR 114. PLAN FOR POSSIBLE DISCHARGE TOMORROW AFTER TALKING WITH AT BEDSIDE TOMORROW. VSS.
[2024-09-20 19:09] VITALS: BP 83/67
[2024-09-21 03:35] VITALS: BP 106/80
--- NOTE | 2024-09-21 06:46 | NUR ---
SHIFT SUMMARY: Pt is admitted for hyperosmolar hyperglycemic state and is a full code. Is alert and able to make needs known. ADLs have been IND. denies pain or discomfort when asked. Spoke with him this am about possibly having a nicotine patch as he states that he is jonesing for a smoke. When offered he decline the patch as it was not the same thing. He states he smokes about a pack daily. Also asked if he could leave the unit to go smoke. Was advised that for him to go smoke it he would have to leave campus. And for him to do that there is a good chance that he will be DC'd per policy.
[2024-09-21 07:07] LABS: Bun/Creatinine Ratio 29.2 (12.0-20.0); Calcium, Blood 8.4 mg/dL (8.5-10.1); Creatinine, Blood 0.75 mg/dL (0.60-1.20); Potassium, Blood 3.3 mmol/L (3.5-5.5)
[2024-09-21 07:18] VITALS: BP 110/74
[2024-09-21] MEDS ORDERED: Potassium Chl 20MEQ/Water100ML 100 ML IV STA (07:23)
--- NOTE | 2024-09-21 09:00 | NUR ---
pt up ambulating ad ganesh in room, and ambulates out in kelly, gait noted to be steady, a/ox3, forgetful, cooperative with care, follows commands well, denies pain, lungs are clear t/o, on r/a, no cough noted, hrr, no edema noted to b/l le, ppp+1, cap refill<3 sec, vs stable, afebrile, piv to jassi site is clear and patent, btx4, abd flat soft nontender, voids without diff, skin c/w/d maew, yin, call light in reach.
[2024-09-21] MEDS ORDERED: Insulin Human Lispro 100 Units/ML 3ML Syringe SC SCH (11:30)
[2024-09-21 16:15] VITALS: BP 97/80
--- NOTE | 2024-09-21 17:02 | NUR ---
pt has been up ambulating in halls, does forget which room to return to, doesn't go far, gait noted to be steady, resting in bed otherwise, is pretty forgetful, no acute changes this shift. call light in reach.
--- NOTE | 2024-09-21 17:10 | NUR ---
THIS RN IS ASSUMING CARE OF PT - WILL UPDATE PROVIDER IF ANY CONCERNS ARISE. REPORT OBTAINED FROM DAY SHIFT RN, WILL PROVIDE REPORT TO NOC SHIFT RN. RN INTRODUCED SELF TO PT - PT CURRENTLY RESTING IN HOSPITAL BED WITH BED IN LOWEST POSITION AND CALL LIGHT WITHIN REACH. PT IS INDEPENDENT IN ROOM.
[2024-09-21 19:15] VITALS: BP 99/56
[2024-09-22 03:45] VITALS: BP 113/85
--- NOTE | 2024-09-22 06:31 | NUR ---
SHIFT SUMMARY: Pt is admitted for hyperosmolar hyperglycemic state and is a full code. Is alert and able to make needs known. ADLs have been IND. denies pain or discomfort when asked.
[2024-09-22 07:51] VITALS: BP 109/95
[2024-09-22 08:55] LABS: Bun/Creatinine Ratio 26.2 (12.0-20.0); Calcium, Blood 8.9 mg/dL (8.5-10.1); Creatinine, Blood 0.73 mg/dL (0.60-1.20); Potassium, Blood 3.7 mmol/L (3.5-5.5)
--- NOTE | 2024-09-22 14:46 | NUR ---
1430 PATIENT REQUESTING DISCHARGE,AMBULATING IN HALLWAYS. SPOKE WITH DR KIRBY REGARDING DISCHARGE AND DISCHARGE ORDERS WILL BE PLACED. PT STATES HE HAS NOT BEEN ABLE TO REACH HIS TO GIVE HIM A RIDE HOME. PT DID CONTACT HIS SON WHO WILL GIVE HIM A RIDE.
--- NOTE | 2024-09-22 15:35 | NUR ---
PT WAS INSISTING ON GOING AMA WALKING AROUND [place] ALL DAY. PT HAD COLLECTED ALL PERSONAL ITEMS AND WAS TRYING TO PULL IV. PT WAS TALKED TO AND AGREED TO SEE DR VAUGHAN. AFTER CAME TO TALK WITH DR VAUGHAN IT WAS DECIDED TO HAVE PT STAY AND DISCHARGE PT OFFICALLY. DICHARGE PAPERWORK WAS WORKED UP IMMEDIATELY. BUT PT WALKED OUT BEFORE PAPERWORK COULD BE REVIEWED AND SIGNED. MEDLIST FAXED TO [facility]. IV WAS REMOVED PRIOR. SON ARRIVED TO FLOOR LOOKING FOR PT TO TRANSPORT HOME. SON SAID HE WOULD FIND THE PT.
== END 2024-09-22 14:50 | disposition home health service (06) | DRG 637 ==
LOC: ER 13:09 → ICUE 15:40 → MEDS 15:40 → ICUE 16:50 → MEDS 09-19 21:28
PROVIDERS: Emergency Medicine; Student in an Organized Health Care Education/Training Program; ADMIT Hospitalist
DX: E11.00 Type 2 diabetes mellitus with hyperosmolarity without nonketotic hyperglycemic-hyperosmolar coma (NKHHC) (principal); G92.8 Other toxic encephalopathy; I50.32 Chronic diastolic (congestive) heart failure; E87.0 Hyperosmolality and hypernatremia; K21.9 Gastro-esophageal reflux disease without esophagitis; I25.10 Atherosclerotic heart disease of native coronary artery without angina pectoris; I11.0 Hypertensive heart disease with heart failure; E87.6 Hypokalemia; I35.0 Nonrheumatic aortic (valve) stenosis; F15.10 Other stimulant abuse, uncomplicated; E83.42 Hypomagnesemia; R94.31 Abnormal electrocardiogram [ECG] [EKG]; Z98.890 Other specified postprocedural states; L89.151 Pressure ulcer of sacral region, stage 1; N40.0 Benign prostatic hyperplasia without lower urinary tract symptoms; E78.5 Hyperlipidemia, unspecified; Z95.810 Presence of automatic (implantable) cardiac defibrillator; Z90.49 Acquired absence of other specified parts of digestive tract; F17.210 Nicotine dependence, cigarettes, uncomplicated; Z79.02 Long term (current) use of antithrombotics/antiplatelets; Z79.4 Long term (current) use of insulin; Z79.899 Other long term (current) drug therapy; Z91.148 Patient's other noncompliance with medication regimen for other reason
CPT/HCPCS: 36415; 51703; 71045; 80048; 80053; 82010; 82947; 83690; 83735; 83880; 83930; 84484; 85025; 93005; 93010; 97129; 97165; 99285-25; A9270; J1650; J1815; J3475; J3480; J7030; J7050; J7120

== ENCOUNTER 2024-10-29 14:16 | Emergency (ER) | payer MEDICARE ==
[~2024-10-29] VITALS: Ht 188 cm; Wt 73.0 kg
[2024-10-29] MEDS ORDERED: Ondansetron HCl 2 MG / ML 2ML Vial IV PRN (15:50)
[2024-10-29 16:32] LABS: Alanine Aminotransfer (ALT/SGP 22.0 U/L (12-78); Albumin, Blood 3.0 g/dL (3.4-5.0); Albumin/Globulin Ratio 1.0 (0.8-1.8); Anion Gap 7.0 mmol/L (3-11); Aspartate Aminotrans (AST/SGOT 11.0 U/L (12-37); Bilirubin, Total 0.4 mg/dL (0.1-1.0); Blood Urea Nitrogen 23.0 mg/dL (8-24); CO2, Blood 28.0 mmol/L (21-32); Calcium, Blood 8.3 mg/dL (8.5-10.1); Chloride, Blood 107.0 mmol/L (98-108); Creatinine, Blood 1.02 mg/dL (0.60-1.20); Globulin, Blood 3.1 g/dL (2.2-4.0); Glucose, Blood 104.0 mg/dL (70-99); Potassium, Blood 3.8 mmol/L (3.5-5.5); Sodium, Blood 138.0 mmol/L (136-145); Total Protein, Blood 6.1 g/dL (6.4-8.2)
[2024-10-29 20:06] LABS: BASOPHILS ABSOLUTE AUTO 0.05 K/mm3 (0.00-0.23); BASOPHILS PERCENT AUTO 1 % (0-2); EOSINOPHILS ABSOLUTE AUTO 0.36 K/mm3 (0.00-0.68); EOSINOPHILS PERCENT AUTO 5 % (0-6); Hematocrit 39.0 % (37.0-53.0); Hemoglobin 12.8 g/dL (13.5-17.5); IMMATURE GRAN ABSOLUTE AUTO 0.02 K/mm3 (0.00-0.10); IMMATURE GRAN PERCENT AUTO 0 % (0-1); LYMPHOCYTES ABSOLUTE AUTO 2.91 K/mm3 (0.84-5.20); LYMPHOCYTES PERCENT AUTO 37 % (21-46); MONOCYTES ABSOLUTE AUTO 0.95 K/mm3 (0.16-1.47); MONOCYTES PERCENT AUTO 12 % (4-13); Mean Corpuscular HGB Conc 32.8 g/dL (31.5-36.5); Mean Corpuscular Volume 98 fL (80-100); NEUTROPHILS ABSOLUTE AUTO 3.51 K/mm3 (1.96-9.15); NEUTROPHILS PERCENT AUTO 45 % (41-73); NRBC ABSOLUTE 0.00 K/mm3 (0.00-0.02); NRBC Auto 0.0 /100 WBC (0.0-0.2); Platelet Count 211 K/mm3 (150-400); RDW Coefficient Variation 12.4 % (11.7-14.2); RDW Standard Deviation 45.1 fL (35.1-46.3)
[2024-10-29 21:30] VITALS: BP 124/66
== END 2024-10-29 23:30 | disposition home or self-care (01) ==
LOC: ER 14:16
PROVIDERS: Emergency Medicine; Student in an Organized Health Care Education/Training Program
DX: R07.9 Chest pain, unspecified (principal); E11.9 Type 2 diabetes mellitus without complications; K21.9 Gastro-esophageal reflux disease without esophagitis; Z79.4 Long term (current) use of insulin; Z79.899 Other long term (current) drug therapy; Z95.0 Presence of cardiac pacemaker; F17.210 Nicotine dependence, cigarettes, uncomplicated
CPT/HCPCS: 71046; 80053; 83690; 84484; 85025; 93005; 93010; 93971; 99285-25